=== PATIENT | female | born 1965 | race Caucasian/White ===

== ENCOUNTER 2020-05-28 13:55 | Emergency (ER) | payer OTHER, SELFPAY ==
[2020-05-28 13:57] VITALS: BP 122/60; PULSE 68; RESP 16; TEMP 36.6; O2SAT 99; BMI 33.3
--- NOTE | 2020-05-28 16:07 | PC.NURSE ---
Pt LWT. Encouraged to stay, declined. Ambulated out of ed w/ steady and erwin gait, no apparent distress. discussed and verbalized risk of leaving.
== END 2020-05-28 16:10 | disposition left against medical advice (07) ==
PROVIDERS: Emergency Provider Emergency Medicine; PCP Internal Medicine
DX: R42 Dizziness and giddiness (principal)
CPT/HCPCS: 99282

== ENCOUNTER 2021-03-06 14:05 | Outpatient (REF) | payer OTHER, SELFPAY ==
[2021-03-06 15:07] LABS: Influenza A PCR NEGATIVE (Negative); Influenza B PCR NEGATIVE (Negative); Resp Syncy Virus RNA Qual PCR NEGATIVE (Negative); SARS COV2 PCR INHOUSE NEGATIVE (Negative)
== END 2021-03-06 14:06 | disposition home or self-care (01) ==
LOC: HO.LNP 14:05
PROVIDERS: Visit Provider Physician Assistant
DX: Z20.822 Contact with and (suspected) exposure to COVID-19 (principal); J06.9 Acute upper respiratory infection, unspecified
CPT/HCPCS: 0241U

== ENCOUNTER 2021-03-13 11:38 | Outpatient (REF) | payer OTHER, SELFPAY ==
[2021-03-13 12:36] LABS: Influenza A PCR NEGATIVE (Negative); Influenza B PCR NEGATIVE (Negative); Resp Syncy Virus RNA Qual PCR NEGATIVE (Negative); SARS COV2 PCR INHOUSE NEGATIVE (Negative)
== END 2021-03-13 11:39 | disposition home or self-care (01) ==
LOC: HO.LNP 11:38
PROVIDERS: Visit Provider Physician Assistant Medical
DX: Z20.822 Contact with and (suspected) exposure to COVID-19 (principal); J06.9 Acute upper respiratory infection, unspecified
CPT/HCPCS: 0241U

== ENCOUNTER 2023-04-27 13:53 | Outpatient (AMB) | payer OTHER, SELFPAY ==
[2023-04-27 13:54] VITALS: BP 110/72; PULSE 72; O2SAT 96; BMI 33.9
--- NOTE | 2023-04-27 13:54 | MHC.PC.OV ---
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 Accompanied by: Self / Same As Patient Allergies morphine Allergy (Intermediate, Verified 04/27/23 14:30) chest heaviness Medication List - Last Reconciled 04/27/23 by Kobe Byrd MD albuterol sulfate 90 mcg/actuation 2 puffs PO QID PRN 30 days fluticasone propionate 110 mcg/actuation (Flovent HFA) 2 puffs PO BID 30 days lorazepam 0.5 mg PO .QD-BID PRN 30 days omeprazole 40 mg (2 x 20 mg) PO DAILY Tobacco use date assessed: 04/27/23 Dental Screening Dental Screen Date: 04/27/23 Did you have a dental visit in the last 12 months?: Yes Did you have a dental problem in the last 6 months where you did not have access to dental care?: No Was dental information given to patient?: Patient has dentist HPI Med review HPI Details Patient comes in today for her follow up visit - has not been back in over 4 years (last seen by me on 04/26/2019) States that she feels okay She denies any headaches or dizziness Denies any chest pains, no SOB - states that her asthma has been well-controlled and she only uses her Flovent on an as-needed basis No nausea/vomiting, no abdominal pain No change in bowel habits noted She still goes to her Suboxone Clinic in [place], [place] regularly and is presently on 2/3 film of 8-2 mg daily PFSH Medical History (Updated 04/27/23 @ 14:50 by Kobe Byrd MD) History of substance abuse Obesity (BMI 30-39.9) Asthma ELENA (generalized anxiety disorder) GERD (gastroesophageal reflux disease) Surgical History (Updated 04/27/23 @ 14:55 by Kobe Byrd MD) History of colonoscopy (~2012) History of hemangioma excision History of arthroplasty of left knee History of arthroplasty of right knee History of endometrial ablation History of carpal tunnel release History of arthroscopy of right knee History of section Family History Father No problems noted. Mother No problems noted. Paternal Uncle Myocardial infarction Social History Housing: Apartment Alcohol intake: never Patient Tobacco Use Status: Former Tobacco user Tobacco use type: Cigarette e-Cigarette/Vaping Use: Never Used Second Hand Smoke Exposure: No service: No Current occupational status: unemployed Current occupational exposures/hazards: No Cognitive needs: No Hearing needs: No Vision needs: No Questionnaire PHQ-9 Over the last 2 weeks, how often have you been bothered by any of the following problems? 1. Little interest or pleasure in doing things: not at all 2. Feeling down, depressed, or hopeless: not at all 3. Trouble falling or staying asleep, or sleeping too much: not at all 4. Feeling tired or having little energy: not at all 5. Poor appetite or overeating: not at all 6. Feeling bad about yourself - or that you are a failure or have let yourself or your family down: not at all 7. Trouble concentrating on things, such as reading the newspaper or watching television: not at all 8. Moving or speaking so slowly that other people could have noticed. Or the opposite - being so fidgety or restless that you have been moving around a lot more than usual: not at all 9. Thoughts that you would be better off or of hurting yourself in some way: not at all Total score: 0 Depression Screening Interpretation: Negative Depression Screening Done: Yes 92375 - PHQ-9 Billing: Yes Source: Developed by Drs. Manas Burdick, Ariela Enriquez, Hakan Tong and colleagues, with an educational angi from [employer]. Thrive Questionnaire Date Thrive assessed: 04/27/23 I am a: Patient What is your living situation today?: I have a steady place to live Within the past 12 months, did the food you bought not last and you didn't have the money to get more?: Never true Within the past 12 months, did you worry whether your food would run out before you got money to buy more?: Never true Do you have trouble paying for medicines?: No Do you have trouble getting transportation to medical appointments?: No Do you have trouble paying your heating and electricity bill?: No Do you have trouble taking care of your child, family member or friend?: No Do you have trouble with day-to-day activities such as bathing, preparing meals, shopping, managing finances, etc.?: No Are you currently unemployed and looking for a job?: No Are you interested in more education?: No Please select the resources that you would like help with: None Currently or been in a relationship where the following occur: no concerns reported THRIVE Score: 0 AUDIT C Alcohol Use Questionnaire (AUDIT-C) 1. How often do you have a drink containing alcohol?: Never Total Score: 0 Score Reviewed/Action Taken: Yes ELENA-7 AMB Questionnaire ELENA-7 Date ELENA - 7 assessed: 04/27/23 Feeling nervous, anxious, or on edge: 1 = Several days Not being able to stop or control worryin = Not at all Worrying too much about different things: 0 = Not at all Trouble relaxin = Not at all Being so restless that it is hard to sit still: 0 = Not at all Becoming easily annoyed or irritable: 0 = Not at all Feeling afraid as if something awful might happen: 0 = Not at all Total ELENA-7 score (0-4 normal; 5-9 mild; 10-14 moderate; 15-21 severe): 1 Source: Developed by Drs. Manas Burdick, Ariela Enriquez, Hakan Tong and colleagues, with an educational angi from [employer]. ELENA-7 Assessment Billing ELENA-7 Assessment Tool: ELENA-7 Assessment 43347 Review of Systems Const Denies chills, Denies fatigue, Denies fever(s) and Denies headache(s) ENT Denies dysphagia, Denies dizziness, Denies otalgia, Denies headache(s), Denies neck pain, Denies odynophagia and Denies sore throat Card Denies chest pain, Denies palpitations and Denies dyspnea Resp Denies cough and Denies dyspnea GI Denies abdominal pain, Denies constipation, Denies dysphagia, Denies heartburn, Denies diarrhea, Denies nausea, Denies odynophagia and Denies vomiting Denies difficulty voiding, Denies nocturia, Denies dysuria and Denies urinary urgency Musc Denies back pain and Denies neck pain Skin/Breast Denies rash Neuro Denies dizziness and Denies headache(s) Endo Denies fatigue and Denies palpitations Physical exam (Primary Care) Vital Signs: Last Vital Signs Pulse 72 04/27/23 13:54 BP 110/72 04/27/23 13:54 Pulse Ox 96 04/27/23 13:54 Oxygen Delivery Method Room Air 04/27/23 13:54 BMI result Body Mass Index 33.9 Tobacco/Smoking Status: Tobacco use Status Tobacco use date assessed 04/27/23 04/27/23 13:55 Patient Tobacco Use Status Former Tobacco user 04/27/23 13:55 Tobacco use type Cigarette 04/27/23 13:55 e-Cigarette/Vaping Use Never Used 04/27/23 13:55 PHQ-9: PHQ-9 Score PHQ-9: Total score 0 04/27/23 14:00 Depression Screening Interpretation: Negative Thrive Assessment: Date of Thrive Assessment Date Thrive assessed 04/27/23 04/27/23 13:55 Currently or been in a relationship where the following occur: no concerns reported Const General: no acute distress and alert Neck Neck: Yes no lymphadenopathy and Yes supple Resp Auscultation: clear to auscultation bilaterally, no rales and no wheezes Cardio Rate: regular rate Rhythm: regular rhythm Heart sounds: no murmurs GI Palpation (GI): Soft to palpation, nontender and No hepatosplenomegaly present Extrem General: Yes no clubbing, cyanosis or edema Assessment and Plan Assessment & Plan (1) Asthma: Code(s): J45.909 - Unspecified asthma, uncomplicated Qualifiers: Asthma severity: mild Asthma persistence: intermittent Asthma complication type: uncomplicated Qualified Code(s): J45.20 - Mild intermittent asthma, uncomplicated Plan: Controlled Patient used to be on Flovent HFA 110 mcg 2 inhalations BID but states that she has only been using it on an as-needed basis for the past couple of years and she hardly has had to use it She also has Albuterol HFA to use at 1 to 2 inhalations Q 6 hours PRN (2) GERD (gastroesophageal reflux disease): Code(s): K21.9 - Gastro-esophageal reflux disease without esophagitis Qualifiers: Esophagitis presence: esophagitis presence not specified Qualified Code(s): K21.9 - Gastro-esophageal reflux disease without esophagitis Plan: Dietary restrictions reinforced Continue Omeprazole 20 mg QD (3) History of substance abuse: Code(s): F19.11 - Other psychoactive substance abuse, in remission Plan: Continue Suboxone 8-2 mg 2/3 film QD - patient goes to her Suboxone clinic in [place], [place] (4) ELENA (generalized anxiety disorder): Code(s): F41.1 - Generalized anxiety disorder Plan: Continue Lorazepam 0.5 mg 1 to 2 times a day as needed (5) Obesity (BMI 30-39.9): Code(s): E66.9 - Obesity, unspecified Plan: Reinforced diet/exercise as tolerated/lose weight Plan To return in 6 months for her annual physical examination Patient is reminded to get her labs done BEFORE she comes in for her next appointment Orders: Orders TSH reflex Free T4 6 Months E78.00 - Pure hypercholesterolemia, unspecified, Z00.00 - Encounter for general adult medical examination without abnormal findings Complete Blood Count Auto Diff 6 Months D64.9 - Anemia, unspecified, Z00.00 - Encounter for general adult medical examination without abnormal findings Comprehensive [place]. Panel Fast 6 Months E78.00 - Pure hypercholesterolemia, unspecified, Z00.00 - Encounter for general adult medical examination without abnormal findings Lipid Panel 6 Months E78.00 - Pure hypercholesterolemia, unspecified, Z00.00 - Encounter for general adult medical examination without abnormal findings Medications: New buprenorphine-naloxone 8-2 mg (Suboxone) 2/3 film buccally daily; 30 ea 0RF Coding Level of Care Code Est Pt Level 3 (62874) Diagnoses Mild intermittent asthma without complication J45.20 Asthma severity: mild Asthma persistence: intermittent Asthma complication type: uncomplicated Gastroesophageal reflux disease, unspecified whether esophagitis present K21.9 Esophagitis presence: esophagitis presence not specified History of substance abuse F19.11 ELENA (generalized anxiety disorder) F41.1 Obesity (BMI 30-39.9) E66.9 Additional Codes ELENA-7 Assessment Billing - ELENA-7 Assessment Tool: ELENA-7 Assessment [id number] ([id number])
== END 2023-04-27 14:48 | disposition home or self-care (01) ==
PROVIDERS: PCP Internal Medicine; Visit Provider Internal Medicine
DX: J45.20 Mild intermittent asthma, uncomplicated (principal); F19.11 Other psychoactive substance abuse, in remission; E66.9 Obesity, unspecified; Z68.33 Body mass index [BMI] 33.0-33.9, adult; K21.9 Gastro-esophageal reflux disease without esophagitis; F41.1 Generalized anxiety disorder
CPT/HCPCS: 99213

== ENCOUNTER 2023-07-26 16:11 | Outpatient (AMB) | payer OTHER, SELFPAY ==
--- NOTE | 2023-07-26 16:26 | MHC.PC.OV ---
Vital Signs 07/26/23 16:28 Height 5 ft 3 in Weight 189 lb 8 oz BMI 33.6 BP 120/62 Blood Pressure Location Lt brachial Position Sitting Pulse 68 Pulse Source Pulse Oximeter Pulse Oximetry (%) 97 Oxygen Delivery Method Room Air Intake Visit Reasons: sharp chest pain single occurrence. Intake Note: Patient is here to follow up on sharp chest pain single occurrence. Complaint of sore throat for the last one week, requesting for strep culture. 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: Not Required per policy Accompanied by: Self / Same As Patient Allergies morphine Allergy (Intermediate, Verified 07/26/23 16:51) chest heaviness Medication List - Last Reconciled 07/26/23 by Kobe Byrd MD albuterol sulfate 90 mcg/actuation 2 puffs PO QID PRN 30 days buprenorphine-naloxone 8-2 mg (Suboxone) 2/3 film buccally daily; lorazepam 0.5 mg PO .QD-BID PRN 30 days omeprazole 40 mg (2 x 20 mg) PO DAILY Pulmicort Flexhaler 90 mcg/actuation (budesonide) 2 inhalations inhalation BID NS Tobacco use date assessed: 07/26/23 Dental Screening Dental Screen Date: 04/27/23 HPI sharp chest pain single occurrence. HPI Details Patient comes in today for further evaluation of chest pain/pressure as well as a recurrent sensation of palpitations that she has been experiencing lately Recalls that she suddenly experienced a sensation of sharp chest pain/pressure about 3 Fridays ago while she was out dancing with some friends States that she then went and sat down and rested herself, and her chest symptoms cleared up / resolved in a few minutes States that the same symptoms occurred again a few days later and that she has been taking it easy and avoiding any strenuous activities since then Adds that she has noticed some on and off sensations of what feels like palpitations/ skipping heart beats lately Notes that these would come and go irregardless of what she is doing and has also occurred at night when she is in bed but has not occurred in the past couple of days Notes that these sensations of palpitations tend to be brief and are not associated with any chest pains or SOB, dizziness/lightheadedness or fatigue States that she's also had a sore throat for about 1 week now and it seems to be starting to subside but is concerned that she could have had a strep throat and would like to get this tested She denies any fever Denies any headaches, dizziness or SOB No nausea/vomiting, no abdominal pain No change in bowel habits noted [facility] Medical History History of substance abuse Obesity (BMI 30-39.9) Asthma ELENA (generalized anxiety disorder) GERD (gastroesophageal reflux disease) Surgical History History of colonoscopy (~2012) History of hemangioma excision History of arthroplasty of left knee History of arthroplasty of right knee History of endometrial ablation History of carpal tunnel release History of arthroscopy of right knee History of section Family History Father No problems noted. Mother No problems noted. Paternal Uncle Myocardial infarction Other Mental health disorder Social History Housing: Apartment Alcohol intake: never Patient Tobacco Use Status: Former Tobacco user Tobacco use type: Cigarette e-Cigarette/Vaping Use: Never Used Second Hand Smoke Exposure: No service: No Current occupational status: unemployed Current occupational exposures/hazards: No Cognitive needs: No Hearing needs: No Vision needs: No Questionnaire Thrive Questionnaire Date Thrive assessed: 04/27/23 ELENA-7 AMB Questionnaire ELENA-7 Date ELENA - 7 assessed: 04/27/23 Source: Developed by Drs. Manas Burdick, Ariela Enriquez, Hakan Tong and colleagues, with an educational angi from [employer]. Review of Systems Const Denies chills, Denies fatigue, Denies fever(s) and Denies headache(s) ENT Denies dysphagia, Denies dizziness, Denies otalgia, Denies headache(s), Denies neck pain, Denies odynophagia and Reports sore throat (see HPI) Card Reports as per HPI, Reports chest pain, Reports irregular heart rhythm (on and off sensations of palpitations ), Denies palpitations and Denies dyspnea Resp Denies cough and Denies dyspnea GI Denies abdominal pain, Denies constipation, Denies dysphagia, Denies heartburn, Denies diarrhea, Denies nausea, Denies odynophagia and Denies vomiting Denies difficulty voiding, Denies nocturia, Denies dysuria and Denies urinary urgency Musc Denies back pain and Denies neck pain Skin/Breast Denies rash Neuro Denies dizziness and Denies headache(s) Endo Denies fatigue and Denies palpitations Physical exam (Primary Care) Vital Signs: Last Vital Signs Pulse 68 07/26/23 16:28 BP 120/62 07/26/23 16:28 Pulse Ox 97 07/26/23 16:28 Oxygen Delivery Method Room Air 07/26/23 16:28 BMI result Body Mass Index 33.6 Tobacco/Smoking Status: Tobacco use Status Tobacco use date assessed 07/26/23 07/26/23 16:33 Patient Tobacco Use Status Former Tobacco user 07/26/23 16:33 Tobacco use type Cigarette 07/26/23 16:33 e-Cigarette/Vaping Use Never Used 07/26/23 16:33 Thrive Assessment: Date of Thrive Assessment Date Thrive assessed 04/27/23 07/26/23 16:33 Const General: no acute distress and alert HENMT Throat: Yes tonsils normal (no TP congestion noted) and Yes posterior oropharynx abnormal ((+) mild erythema of the posterior pharynx) Neck Neck: Yes no lymphadenopathy and Yes supple Thyroid: Thyroid normal Resp Auscultation: clear to auscultation bilaterally, no rales and no wheezes Cardio Rate: regular rate Rhythm: regular rhythm Heart sounds: no murmurs GI Palpation (GI): Soft to palpation and nontender Auscultation: normal bowel sounds General: Yes no CVA tenderness Back/Spine/Pelvis Back: no CVA tenderness Skin Rashes: no rashes Extrem General: Yes no clubbing, cyanosis or edema Results AMB Rapid Strep AMB Rapid Strep Negative Last Edit by STACI Fox on 07/26/23 16:41 Results Reviewed Results Reviewed: Laboratory Last Values Strep Scn Rapid Clinic Negative 07/26/23 16:37 Assessment and Plan Assessment & Plan (1) Palpitations: Code(s): R00.2 - Palpitations Plan: Will send patient for some labs [facility] for further evaluation Will also send her for echocardiogram and a 7 days Holter monitor for further evaluation of her recent symptoms of palpitations (2) Chest pressure: Code(s): R07.89 - Other chest pain Plan: Will send patient for some labs [facility] for further evaluation She is presently advised to continue avoiding any strenuous activities for now pending further work ups Advised that she should proceed to the nearest ER [facility] if her chest pressure/pain symptoms continue to recur and she should also start taking low dose Aspirin daily in this case (3) Asthma: Code(s): J45.909 - Unspecified asthma, uncomplicated Qualifiers: Asthma severity: mild Asthma persistence: intermittent Asthma complication type: uncomplicated Qualified Code(s): J45.20 - Mild intermittent asthma, uncomplicated Plan: Controlled Patient used to be on Flovent HFA 110 mcg 2 inhalations BID but states that she has only been using it on an as-needed basis for the past couple of years and she hardly has had to use it She also has Albuterol HFA to use at 1 to 2 inhalations Q 6 hours PRN (4) GERD (gastroesophageal reflux disease): Code(s): K21.9 - Gastro-esophageal reflux disease without esophagitis Qualifiers: Esophagitis presence: esophagitis presence not specified Qualified Code(s): K21.9 - Gastro-esophageal reflux disease without esophagitis Plan: Dietary restrictions reinforced Continue Omeprazole 20 mg QD (5) History of substance abuse: Code(s): F19.11 - Other psychoactive substance abuse, in remission Plan: Continue Suboxone 8-2 mg 2/3 film QD - patient goes to her Suboxone clinic in [place], [place] (6) ELENA (generalized anxiety disorder): Code(s): F41.1 - Generalized anxiety disorder Plan: Continue Lorazepam 0.5 mg 1 to 2 times a day as needed (7) Obesity (BMI 30-39.9): Code(s): E66.9 - Obesity, unspecified Plan: Reinforced diet and weight loss but has been advised to hold off on any strenuous activities/exercise until her cardiac evaluation is completed Plan To return as scheduled in October 2023 for her annual physical examination Orders: Orders Comprehensive [place]. Panel Fast 07/26/23 E78.00 - Pure hypercholesterolemia, unspecified, R00.2 - Palpitations C Reactive Protein 07/26/23 R00.2 - Palpitations CA echo transthoracic complete 07/26/23 R00.2 - Palpitations, R06.09 - Other forms of dyspnea AMB Rapid Strep Screen 07/26/23 Z13.9 - Encounter for screening, unspecified Complete Blood Count Auto Diff 07/26/23 D64.9 - Anemia, unspecified, R00.2 - Palpitations Lipid Panel 07/26/23 E78.00 - Pure hypercholesterolemia, unspecified, R00.2 - Palpitations TSH reflex Free T4 07/26/23 E78.00 - Pure hypercholesterolemia, unspecified, R00.2 - Palpitations Troponin-I High Sensitivity 07/26/23 R00.2 - Palpitations, R07.9 - Chest pain, unspecified ECG 7 day holter monitor 07/26/23 R00.2 - Palpitations Coding Level of Care Code Est Pt Level 4 (00898) Diagnoses Palpitations R00.2 Chest pressure R07.89 Mild intermittent asthma without complication J45.20 Asthma severity: mild Asthma persistence: intermittent Asthma complication type: uncomplicated Gastroesophageal reflux disease, unspecified whether esophagitis present K21.9 Esophagitis presence: esophagitis presence not specified History of substance abuse F19.11 ELENA (generalized anxiety disorder) F41.1 Obesity (BMI 30-39.9) E66.9
[2023-07-26 16:28] VITALS: BP 120/62; PULSE 68; O2SAT 97; BMI 33.6
== END 2023-07-26 17:01 | disposition home or self-care (01) ==
PROVIDERS: PCP Internal Medicine; Visit Provider Internal Medicine
DX: R07.0 Pain in throat (principal)
CPT/HCPCS: 87880; 99214

== ENCOUNTER 2023-07-27 06:04 | Outpatient (REF) | payer OTHER, SELFPAY ==
[2023-07-27 06:20] LABS: MANUAL DIFF FLAG NO
[2023-07-27 07:14] LABS: Troponin-I High Sensitivity < 2.7 ng/L (<3.5-17.0)
[2023-07-27 07:20] LABS: Alanine Aminotransferase 12 U/L (0-31); Alkaline Phosphatase 91 U/L (39-117); Anion Gap 13 (12-20); Aspartate Amino Transferase 20 U/L (5-31); Bilirubin Total 0.4 mg/dL (0.0-1.0); Blood Urea Nitrogen 12 mg/dL (9-16); C Reactive Protein 0.81 mg/dL (< or = 0.50); Calcium 9.4 mg/dL (8.4-10.2); Carbon Dioxide 26 mmol/L (22-29); Chloride 106 mmol/L (96-108); Cholesterol 200 mg/dL (<200); Estimated Glomerular Filt Rate > 60; Glucose Fasting 91 mg/dL (60-99); HDL Cholesterol 60 mg/dL (>40); LDL Cholesterol Calculated 125 mg/dL (<100); Sodium 141 mmol/L (135-145); Total Protein 6.6 g/dL (6.5-8.0); Triglycerides 79 mg/dL (<150)
[2023-07-27 07:23] LABS: Basophils Percent Auto 0.7 % (0-2); Eosinophils Absolute Auto 0.2 X10*3/uL (0.0-0.4); Hematocrit 37.4 % (37.0-47.0); Hemoglobin 12.5 g/dl (12.0-16.0); Imm Gran Abs Auto 0.01 X10*3/uL (0.00-0.03); Imm Gran Pct Auto 0.2 % (0.0-0.4); Lymphocytes Absolute Auto 1.5 X10*3/uL (1.2-4.9); Lymphocytes Percent Auto 35.2 % (20-40); Mean Corpuscular HGB Conc 33.4 g/dl (31.0-35.0); Mean Corpuscular Hemoglobin 30.6 pg (27.0-33.0); Mean Corpuscular Volume 91.7 fL (80.0-98.0); Mean Platelet Volume 9.9 fL (9.4-12.3); Monocytes Absolute Auto 0.3 X10*3/uL (0.1-1.2); Monocytes Percent Auto 6.4 % (2-11); Neutrophils Absolute Auto 2.2 x10*3/uL (2.0-8.3); Neutrophils Percent Auto 52.5 % (45-73); Platelet Count 201 X10*3/uL (160-400); Red Blood Count 4.08 X10*6/uL (4.20-5.50); Red Cell Distribution Width 12.4 % (11.0-16.0); White Blood Count 4.2 X10*3/uL (4.8-10.8)
== END 2023-07-27 06:05 | disposition home or self-care (01) ==
LOC: HO.LAB 06:04
PROVIDERS: PCP Internal Medicine; Visit Provider Internal Medicine
DX: R07.9 Chest pain, unspecified (principal); R00.2 Palpitations; E78.00 Pure hypercholesterolemia, unspecified; D64.9 Anemia, unspecified
CPT/HCPCS: 36415; 80053; 80061; 84443; 84484; 85025; 86140

== ENCOUNTER → 2023-08-18 14:08 | Outpatient (REF) | payer OTHER, SELFPAY ==
--- NOTE | 2023-08-18 14:13 | CA_ITS ---
Transthoracic Echocardiogram Patient (Last, First, Middle): Jocelyne Garcia M Gender: Female Date of : 1965 Age: 58 Procedure Date: 08/18/2023 Procedure Type: Transthoracic Echocardiogram Location: OP Height: 160.02 cm Weight: 83.92 kg BSA: 1.87 m2 Heart Rate: bpm BP: 90 / 60 mmHg Punching Machine Operator: TO Referring MD: Kobe Byrd MD Symptoms: R06.09 - Other forms of dyspnea Study Quality: Adequate ECG Rhythm: Sinus Conclusions: - The left ventricular systolic function is normal. The calculated ejection fraction is 66% by biplane method. - No obvious valvular pathology seen on this study. Findings Left Ventricle Normal left ventricular cavity size. There is normal left ventricular wall thickness. The left ventricular systolic function is normal. The calculated ejection fraction is 66% by biplane method. There is no evidence of regional wall motion abnormalities. Diastolic function is normal for age. LV peak GLS -22.7% (normal). Right Ventricle Normal right ventricular cavity size and systolic function. Atria Both atria are normal in size. Aortic Valve There is a normal trileaflet aortic valve. There is no aortic valve stenosis. There is no aortic valve regurgitation. Mitral Valve There is mild mitral annular calcification. There is trace mitral valve regurgitation. There is no mitral valve stenosis. Pulmonic Valve The pulmonic valve is likely normal. Tricuspid Valve There is mild tricuspid valve regurgitation. There is no evidence of pulmonary hypertension. Great Vessels The asc aorta and aortic arch are normal in size. Venous The inferior vena cava is normal in size and collapses greater than 50% with inspiration. Pericardium/Pleural There is a trivial pericardial effusion. Prior Study Comparison No significant change compared to prior study dated: 10/26/2017. Recommendations, Care & Conclusions No obvious valvular pathology seen on this study. Measurements 2D Linear Measurements IVSd: 0.89 0.6-0.9/0.6-1.0 cm LVIDd: 4.74 3.9-5.3/4.2-5.9 cm LVIDd Index: 2.53 2.4-3.2/2.2-3.1 cm/m2 LVIDs: 3.04 2.0-3.6 cm LVPWd: 0.72 0.7-1.1 cm LA Diam: 3.60 2.7-3.8/3.0-4.0 cm LAIDs Index: 1.93 1.5-2.3 cm/m2 LV Mass: 155.79 67-162/88-224 g LV Mass Index: 83.31 43-95/49-115 g/m2 LVOT Diam: 2.00 3.0+(-)1.3 cm 2D Systolic Function EF 4C: 67.90 >55% EF 2C: 61.40 >55% EF BiP: 66.00 >55% Mitral Valve MV VTI: 0.36 MV Pk Dave: 1.18 MV Mn Dave: 0.57 MV Pk Grad: 6.00 MV Mn Grad: 2.00 MV Pk E: 0.98 MV PK A: 0.43 MV Decel Time: 229.00 E/A: 2.30 E'Lateral: 9.36 E'Medial: 8.49 E/E' Med: 11.50 E/E' Lat: 10.40 PHT: 67.00 MVA PHT: 3.28 MVA Continuity: 2.17 Decel [place]: 4.27 Aortic Valve AoV Pk Dave: 1.82 AoV Mn Dave: 1.33 AoV VTI: 0.44 AoV Pk Grad: 13.00 Aov Mn Grad: 8.00 NICKI Cont.VTI: 1.80 LVOT LVOT Pk Dave: 1.02 LVOT Mn Dave: 0.65 LVOT VTI: 0.25 LVOT Pk Grad: 4.00 LVOT Mn Grad: 2.00 LVOT Diam: 2.00 LVOT Area: 3.14 Diastolic Function MV Pk E: 0.98 MV Pk A: 0.43 E/A: 2.30 E'Medial: 8.49 E/E' Med: 11.50 E' Laterial: 9.36 E/E' Lat: 10.40 Right Ventricle TAPSE (mm): 29.20 TVS' Dave: 11.50 Tricuspid Valve TR Pk Dave: 2.01 TR Pk Grad: 16.00 RA Press: 3.00 RVSP: 19.00 Great Vessels Aorta Sinus of Valsalva: 2.71 2.0-3.5 cm Ao Asc: 3.00 2.1-3.4 cm Ao Arch: 2.30 Updated in Other Vendor System with Status of Final Onesimo Silveira MD electronically signed on 08/20/2023 9:08:12 AM with status of Final
--- NOTE | 2023-08-18 14:13 | HM_ITS ---
Conclusion : 1) Patient was monitored for total period of 5 days and 21 hours 2) Baseline rhythm is NSR with average HR of 71 bpm 3) No significant pauses or arrhythmias noted 4) Patient reported 2 events correlated with NSR MTDD
== END ==
LOC: HO.CARD 14:08
PROVIDERS: PCP Internal Medicine; Visit Provider Internal Medicine
DX: R00.2 Palpitations (principal); R06.09 Other forms of dyspnea
CPT/HCPCS: 93242; 93306; 93356

== ENCOUNTER → 2023-08-18 14:13 | Outpatient (BNV) | payer OTHER, SELFPAY | PROVIDERS: PCP Internal Medicine; Visit Provider Internal Medicine | DX: R00.2 Palpitations (principal) | CPT/HCPCS: 93244; 93306; 93356 ==

== ENCOUNTER 2023-10-26 08:59 | Outpatient (AMB) | payer BC, SELFPAY ==
[2023-10-26 09:00] VITALS: BP 116/70; PULSE 73; O2SAT 98; BMI 33.8
--- NOTE | 2023-10-26 09:00 | A.OFFPC_ITS ---
Vital Signs 10/26/23 09:00 Height 5 ft 3 in Weight 191 lb 0.2 oz BMI 33.8 BP 116/70 Blood Pressure Location Lt brachial Position Sitting Pulse 73 Pulse Source Pulse Oximeter Pulse Oximetry (%) 98 Oxygen Delivery Method Room Air Intake Visit Reasons: Annual Exam Intake Note: Patient is here today for a physical. 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 Required: No Allergies morphine Allergy (Intermediate, Verified 10/26/23 09:12) chest heaviness Medication List - Last Reconciled 10/26/23 by Kobe Byrd MD albuterol sulfate 90 mcg/actuation 2 puffs PO QID PRN 30 days buprenorphine-naloxone 8-2 mg (Suboxone) 2/3 film buccally daily; lorazepam 0.5 mg PO .QD-BID PRN 30 days omeprazole 40 mg (2 x 20 mg) PO DAILY Pulmicort Flexhaler 90 mcg/actuation (budesonide) 2 inhalations inhalation BID NS Tobacco use date assessed: 07/26/23 Dental Screening Dental Screen Date: 10/26/23 Did you have a dental visit in the last 12 months?: Yes Did you have a dental problem in the last 6 months where you did not have access to dental care?: No Was dental information given to patient?: Patient has dentist HPI Annual Exam HPI Details Patient comes in today for her annual physical examination States that she feels okay She denies any headaches or dizziness Denies any chest pains, no SOB No nausea/vomiting, no abdominal pain No change in bowel habits noted Denies any acute urinary symptoms Needs her Lorazepam Rx refilled She did not get her follow up labs done recently although she did have some labs done back in July 2023 She last had her screening colonoscopy done at [facility] in 2012 and was due for repeat colonoscopy in 2022 She has NOT had her gynecology exam and pap smear done in years - was last done with Dr. Rosenberg at [facility] She also has not had her annual mammogram done in over 5 years and has never had BMD screening done in the past [facility] Medical History History of substance abuse Obesity (BMI 30-39.9) Asthma ELENA (generalized anxiety disorder) GERD (gastroesophageal reflux disease) Surgical History History of colonoscopy (~2012) History of hemangioma excision History of arthroplasty of left knee History of arthroplasty of right knee History of endometrial ablation History of carpal tunnel release History of arthroscopy of right knee History of section Family History Father No problems noted. Mother No problems noted. Paternal Uncle Myocardial infarction Other Mental health disorder Social History Housing: Apartment Alcohol intake: never Patient Tobacco Use Status: Former Tobacco user Tobacco use type: Cigarette e-Cigarette/Vaping Use: Never Used Second Hand Smoke Exposure: No service: No Current occupational status: unemployed Current occupational exposures/hazards: No Cognitive needs: No Hearing needs: No Vision needs: No Questionnaire PHQ-9 Over the last 2 weeks, how often have you been bothered by any of the following problems? 1. Little interest or pleasure in doing things: not at all 2. Feeling down, depressed, or hopeless: not at all 3. Trouble falling or staying asleep, or sleeping too much: not at all 4. Feeling tired or having little energy: not at all 5. Poor appetite or overeating: not at all 6. Feeling bad about yourself - or that you are a failure or have let yourself or your family down: not at all 7. Trouble concentrating on things, such as reading the newspaper or watching television: not at all 8. Moving or speaking so slowly that other people could have noticed. Or the opposite - being so fidgety or restless that you have been moving around a lot more than usual: not at all 9. Thoughts that you would be better off or of hurting yourself in some way: not at all Total score: 0 Depression Screening Interpretation: Negative Depression Screening Done: Yes 72549 - PHQ-9 Billing: Yes Source: Developed by Drs. Manas Burdick, Ariela Enriquez, Hakan Tong and colleagues, with an educational angi from [employer]. Thrive Questionnaire Date Thrive assessed: 04/27/23 I am a: Patient What is your living situation today?: I have a steady place to live Within the past 12 months, did the food you bought not last and you didn't have the money to get more?: Never true Within the past 12 months, did you worry whether your food would run out before you got money to buy more?: Never true Do you have trouble paying for medicines?: No Do you have trouble getting transportation to medical appointments?: No Do you have trouble paying your heating and electricity bill?: No Do you have trouble taking care of your child, family member or friend?: No Do you have trouble with day-to-day activities such as bathing, preparing meals, shopping, managing finances, etc.?: No Are you currently unemployed and looking for a job?: No Are you interested in more education?: No Please select the resources that you would like help with: None Currently or been in a relationship where the following occur: No concerns reported THRIVE Score: 0 AUDIT C Alcohol Use Questionnaire (AUDIT-C) 1. How often do you have a drink containing alcohol?: Never 3. How often do you have six or more drinks on one occasion?: Never Total Score: 0 Score Reviewed/Action Taken: Yes ELENA-7 AMB Questionnaire ELENA-7 Date ELENA - 7 assessed: 04/27/23 Feeling nervous, anxious, or on edge: 0 = Not at all Not being able to stop or control worryin = Not at all Worrying too much about different things: 0 = Not at all Trouble relaxin = Not at all Being so restless that it is hard to sit still: 0 = Not at all Becoming easily annoyed or irritable: 0 = Not at all Feeling afraid as if something awful might happen: 0 = Not at all Total ELENA-7 score (0-4 normal; 5-9 mild; 10-14 moderate; 15-21 severe): 0 Source: Developed by Drs. Manas Burdick, Ariela Enriquez, Hakan Tong and colleagues, with an educational angi from [employer]. ELENA-7 Assessment Billing ELENA-7 Assessment Tool: ELENA-7 Assessment [id number] Review of Systems Const Denies chills, Denies fatigue, Denies fever(s), Denies headache(s) and Denies malaise Eyes Denies blurry vision, Denies change in vision, Denies irritation and Denies itchy eyes ENT Denies dysphagia, Denies dizziness, Denies otalgia, Denies headache(s), Denies nasal congestion, Denies neck pain, Denies odynophagia, Denies sinus pain and Denies sore throat Card Denies chest pain, Denies rapid heart rate, Denies irregular heart rhythm, Denies palpitations and Denies dyspnea Resp Denies chest congestion, Denies cough, Denies dyspnea and Denies wheezing GI Denies abdominal pain, Denies bloating, Denies constipation, Denies dysphagia, Denies heartburn, Denies diarrhea, Denies nausea, Denies odynophagia and Denies vomiting Denies hematuria, Denies urinary frequency, Denies dysuria, Denies urinary incontinence and Denies urinary urgency Musc Denies back pain, Denies arthralgias, Denies joint swelling, Denies muscle weakness and Denies neck pain Skin/Breast Denies breast pain, Denies breast mass, Denies change in pigmentation, Reports lesions ((+) hyperpigmented skin lesions on a couple of toes and under her breasts), Denies rash and Denies unusual bruising Neuro Denies dizziness, Denies headache(s) and Denies paresthesias Psych Denies anxiety and Denies depression Endo Denies fatigue and Denies palpitations Eber/Lymph Denies easy bruising Aller/Immun Denies itchy eyes and Denies wheezing Physical exam (Primary Care) Vital Signs: Last Vital Signs Pulse 73 10/26/23 09:00 BP 116/70 10/26/23 09:00 Pulse Ox 98 10/26/23 09:00 Oxygen Delivery Method Room Air 10/26/23 09:00 BMI result Body Mass Index 33.8 Tobacco/Smoking Status: Tobacco use Status Tobacco use date assessed 07/26/23 10/26/23 09:07 Patient Tobacco Use Status Former Tobacco user 10/26/23 09:07 Tobacco use type Cigarette 10/26/23 09:07 e-Cigarette/Vaping Use Never Used 10/26/23 09:07 PHQ-9: PHQ-9 Score PHQ-9: Total score 0 10/26/23 09:07 Depression Screening Interpretation: Negative Thrive Assessment: Date of Thrive Assessment Date Thrive assessed 04/27/23 10/26/23 09:07 Currently or been in a relationship where the following occur: No concerns reported Const General: no acute distress, alert and awake Orientation/consciousness: patient oriented x3 [facility] Head: Yes normocephalic and Yes atraumatic Ears: external ears normal, TM's normal bilaterally and EAC's normal General nose exam: No nasal discharge present Face and sinus: Yes normal facial exam and Yes sinuses nontender Teeth and gingiva: dentition normal Throat: Yes posterior oropharynx normal and Yes tonsils normal (no TP congestion) Eyes Eyelids: Yes eyelids normal Conjunctivae: conjunctivae normal Pupils: Equal, round and reactive pupils present EOM: EOMs intact bilaterally Neck Neck: Yes no lymphadenopathy and Yes supple Thyroid: Thyroid normal Resp Auscultation: clear to auscultation bilaterally, no rales and no wheezes Cardio Rate: regular rate Rhythm: regular rhythm Heart sounds: no murmurs GI Palpation (GI): Soft to palpation, nontender and No hepatosplenomegaly present Auscultation: normal bowel sounds General: Yes no CVA tenderness Back/Spine/Pelvis Back: no CVA tenderness Thoracic/Lumbar Spine: thoracic and lumbar spine normal to inspection Skin Other: (+) 3 hyperpigmented skin lesions - one in between the lower half of her breasts and the other 2 are on separate toes on both feet Rashes: no rashes Neuro General: patient oriented x3, moves all extremities, no focal motor deficits and CN's II-XI intact bilaterally Cranial nerves: Yes Equal, round and reactive pupils present Cognition (Neuro): normal cognition Gait exam (Neuro): Normal gait present Extrem Other: (+) mild onycholysis of some toenails on both feet General: Yes no clubbing, cyanosis or edema Results Reviewed Results Reviewed: Laboratory Tests 07/27/23 06:19 WBC 4.2 L Hgb 12.5 Hct 37.4 Plt Count 201 Sodium 141 Potassium 4.0 Creatinine 0.78 Estimated GFR > 60 Fasting Glucose 91 Calcium 9.4 AST 20 ALT 12 Troponin I High Sens < 2.7 C-Reactive Protein 0.81 H Triglycerides 79 Cholesterol 200 H LDL Cholesterol, Calc 125 H HDL Cholesterol 60 TSH 2.30 Assessment and Plan Assessment & Plan (1) Annual physical exam: Code(s): Z00.00 - Encounter for general adult medical examination without abnormal findings Plan: Results of her labs done back in July 2023 reviewed and discussed with patient She last had her screening colonoscopy done at [facility] in 2012 and was due for repeat colonoscopy in 2022 She has NOT had her gynecology exam and pap smear done in years - was last done with Dr. Rosenberg at [facility] She also has not had her annual mammogram done in over 5 years and has never had BMD screening done in the past Will have patient get her previously ordered labs (updated) done in 4 months for follow up (2) Palpitations: Code(s): R00.2 - Palpitations Plan: Patient states that she has not had any symptoms of palpitations lately and felt that they have mostly subsided Have advised patient that all of her work ups done a few months ago, including her labs, echocardiogram and Holter monitor, came back normal or unrevealing Her echocardiogram came out completely normal, with no valvular pathology Extended Holter monitor also came back normal - baseline rhythm is NSR with average HR of 71 bpm, no significant pauses or arrhythmias noted and patient reported 2 events that correlated with NSR Have advised patient that her symptoms were likely due to anxiety and as they have not been bothering her lately, we will just continue observing for now (3) Asthma: Code(s): J45.909 - Unspecified asthma, uncomplicated Qualifiers: Asthma severity: mild Asthma persistence: intermittent Asthma complication type: uncomplicated Qualified Code(s): J45.20 - Mild intermittent asthma, uncomplicated Plan: Controlled Patient used to be on Flovent HFA 110 mcg 2 inhalations BID but states that she has only been using it on an as-needed basis for the past couple of years and she hardly has had to use it We switched her recently over to Pulmicort due to insurance no longer covering Flovent - states that she has also been using her Pulmicort as needed lately She also has Albuterol HFA to use at 1 to 2 inhalations Q 6 hours PRN (4) GERD (gastroesophageal reflux disease): Code(s): K21.9 - Gastro-esophageal reflux disease without esophagitis Qualifiers: Esophagitis presence: esophagitis presence not specified Qualified Code(s): K21.9 - Gastro-esophageal reflux disease without esophagitis Plan: Dietary restrictions reinforced Continue Omeprazole 20 mg QD (5) History of substance abuse: Code(s): F19.11 - Other psychoactive substance abuse, in remission Plan: Continue Suboxone 8-2 mg 2/3 film QD - patient goes to her Suboxone clinic in [place], [place] (6) ELENA (generalized anxiety disorder): Code(s): F41.1 - Generalized anxiety disorder Plan: Continue Lorazepam 0.5 mg 1 to 2 times a day as needed - Rx refilled (7) Obesity (BMI 30-39.9): Code(s): E66.9 - Obesity, unspecified Plan: Reinforced diet/exercise as tolerated/lose weight Plan Follow up in 4 months Orders: Orders UA CC w/rflx Micro + Cult 02/20/24 R30.0 - Dysuria, Z00.00 - Encounter for general adult medical examination without abnormal findings MM tomosynthesis screening BI Today Z12.31 - Encounter for screening mammogram for malignant neoplasm of breast XR DEXA axial skeleton Today Z78.0 - Asymptomatic menopausal state Vitamin D 25-OH Total 02/20/24 E55.9 - Vitamin D deficiency, unspecified, Z00.00 - Encounter for general adult medical examination without abnormal findings Referrals Gastroenterology Referral Z12.11 - Encounter for screening for malignant neoplasm of colon [employer] Referral Z12.4 - Encounter for screening for malignant neoplasm of cervix Dermatology Referral L81.9 - Disorder of pigmentation, unspecified Medications: Refilled lorazepam 0.5 mg PO .QD-BID 30 days PRN 60 tabs 0RF anxiety Coding Level of Care Code Est Pt Prev Care 40-64y(23885) Diagnoses Annual physical exam Z00.00 Palpitations R00.2 Mild intermittent asthma without complication J45.20 Asthma severity: mild Asthma persistence: intermittent Asthma complication type: uncomplicated Gastroesophageal reflux disease, unspecified whether esophagitis present K21.9 Esophagitis presence: esophagitis presence not specified History of substance abuse F19.11 ELENA (generalized anxiety disorder) F41.1 Obesity (BMI 30-39.9) E66.9 Additional Codes ELENA-7 Assessment Billing - ELENA-7 Assessment Tool: ELENA-7 Assessment [id number] ([id number])
== END 2023-10-26 09:38 | disposition home or self-care (01) ==
PROVIDERS: PCP Internal Medicine; Visit Provider Internal Medicine
DX: Z00.00 Encounter for general adult medical examination without abnormal findings (principal); R00.2 Palpitations; J45.20 Mild intermittent asthma, uncomplicated; F19.11 Other psychoactive substance abuse, in remission; K21.9 Gastro-esophageal reflux disease without esophagitis; F41.1 Generalized anxiety disorder
CPT/HCPCS: 99396

== ENCOUNTER 2023-11-16 09:37 | Outpatient (REF) | payer BC, SELFPAY ==
--- NOTE | ~2023-11-16 | MM_ITS ---
EXAMINATION: BONE DENSITOMETRY CLINICAL INDICATION: Menopause. COMPARISON: This is the patient's baseline examination. TECHNIQUE: Using a HeartFlow DXA System (software version: 13.1) manufactured by [employer], dual-energy x-ray absorptiometry was performed of the lumbar spine and left hip. The images are of good technical quality. Summary results are attached. FINDINGS: LEFT FEMUR, NECK: BMD 0.897 g/cm2, Z-score -0.2, T-score -1.0, normal. LEFT FEMUR, TOTAL: BMD 0.881 g/cm2, Z-score -0.6, T-score -1.0, normal. AP SPINE L1-L4: BMD 1.136 g/cm2, Z-score 0.2, T-score -0.4, normal. IDENTIFIED RISK FACTORS: Early menopause, secondary osteoporosis. HISTORY OF FRACTURE: None listed. MEDICATIONS: None listed. MM/XR DEXA axial skeleton IMPRESSION: 1. DIAGNOSIS: Normal bone density based on the lowest T-score value of -1.0 in the femur neck and total femur applying World Health Organization criteria. 2. 10-YEAR FRACTURE RISK PREDICTION, FRAX: According to the guidelines, FRAX calculation should only be performed on patients in the osteopenia bone density category. Therefore, FRAX was not performed on this patient. 3. Treatment Recommendations: NOF guidelines recommend consideration for treatment in postmenopausal women and men age 50 and older presenting with the following: -A hip or vertebral (clinical or morphometric) fracture. -T-score less than or equal to -2.5 at the femoral neck or spine after appropriate evaluation to exclude secondary causes. -Low bone mass at the hip or spine and a 10-year fracture probability by FRAX of greater than or equal to 3% for hip fracture or greater than or equal to 20% for major osteoporotic fracture based on the [place] adapted WHO algorithm. 4. Other Recommendations: All treatment decisions require clinical judgment and consideration of individual patient factors, including patient preferences, comorbidities, previous drug use, risk factors not captured in the FRAX model (e.g. frailty, falls, vitamin D deficiency, increased bone turnover, interval significant decline in bone density) and possible under or overestimation of fracture risk by FRAX. FUTURE SCAN RECOMMENDATION: People with diagnosed cases of osteoporosis or at high risk for fracture should have regular bone mineral density tests. For patients eligible for Medicare, routine testing is allowed once every 2 years. The testing frequency can be increased to one year for patients who have rapidly progressing disease, those who are receiving or discontinuing medical therapy to restore bone mass, or have additional risk factors. Electronically signed by: Armand Mccoy MD 11/18/2023 09:56 AM EDT
--- NOTE | ~2023-11-16 | MM_ITS ---
EXAMINATION: MM SCREENING DIGITAL BREAST TOMOSYNTHESIS, BILATERAL CLINICAL INFORMATION: Screening. Asymptomatic. COMPARISON: Mammography: Comparison is made with available priors TECHNIQUE: Digital breast tomosynthesis is performed in both the craniocaudal and mediolateral oblique views along with computer-aided detection (CAD). Synthesized 2D images are generated from the tomosynthesis. FINDINGS: There are scattered areas of fibroglandular density (ACR BI-RADS breast composition Category b). There are no significant masses, abnormal calcifications, or other abnormalities. MM/MM tomosynthesis screening BI IMPRESSION: No mammographic evidence of malignancy. ASSESSMENT: BI-RADS BI-RADS 1 - Negative RECOMMENDATION: Routine annual mammography screening. 1 year F/U This examination should not preclude the clinical evaluation of a suspicious palpable abnormality. This patient's information was entered into a reminder system with a target due date for their next mammogram. Electronically signed by: Lorrie Thorpe DO 12/10/2023 01:14 PM EDT
== END 2023-11-16 09:38 | disposition home or self-care (01) ==
LOC: HO.MAMMO 09:37
PROVIDERS: PCP Internal Medicine; Visit Provider Internal Medicine
DX: Z12.31 Encounter for screening mammogram for malignant neoplasm of breast (principal); Z13.820 Encounter for screening for osteoporosis; Z78.0 Asymptomatic menopausal state
CPT/HCPCS: 77063; 77067; 77080

== ENCOUNTER → 2023-11-16 09:45 | Outpatient (BNV) | payer BC, SELFPAY | PROVIDERS: PCP Internal Medicine; Visit Provider Internal Medicine | DX: Z12.31 Encounter for screening mammogram for malignant neoplasm of breast (principal) | CPT/HCPCS: 77063; 77067 ==

== ENCOUNTER 2024-05-05 11:14 | Outpatient (REF) | payer BC, SELFPAY ==
[2024-05-05 13:11] LABS: Influenza A PCR POSITIVE (Negative); Influenza B PCR NEGATIVE (Negative); Resp Syncy Virus RNA Qual PCR NEGATIVE (Negative); SARS COV2 PCR INHOUSE NEGATIVE (Negative)
== END 2024-05-05 11:15 | disposition home or self-care (01) ==
LOC: HO.LAB 11:14
PROVIDERS: PCP Internal Medicine; Visit Provider Internal Medicine
DX: J98.8 Other specified respiratory disorders (principal); R05.8 Other specified cough
CPT/HCPCS: 0241U; 96127

== ENCOUNTER 2024-05-05 11:14 | Outpatient (AMB) | payer BC, SELFPAY ==
--- NOTE | 2024-05-05 11:15 | A.OFFPC_ITS ---
Intake Visit Reasons: 4 month f/u [employer] Card Changer Required: No Accompanied by: Self / Same As Patient Allergies morphine Allergy (Intermediate, Verified 05/07/24 15:37) chest heaviness Medication List - Last Reconciled 05/05/24 by Kobe Byrd MD albuterol sulfate 90 mcg/actuation 2 puffs PO QID PRN 30 days buprenorphine-naloxone 8-2 mg (Suboxone) 2/3 film alternating with 1/2 film buccally every other day; fluticasone propionate 110 mcg/actuation 2 inhalations inhalation BID lorazepam 0.5 mg PO .QD-BID PRN 30 days omeprazole 40 mg (2 x 20 mg) PO DAILY Tobacco use date assessed: 05/05/24 Dental Screening Dental Screen Date: 05/05/24 Did you have a dental visit in the last 12 months?: Yes Did you have a dental problem in the last 6 months where you did not have access to dental care?: No Was dental information given to patient?: Patient has dentist HPI 4 month f/u HPI Details Patient's follow up visit / consultation today is done over video conference (iPhone/iPad/[employer]) - this is a TELEHEALTH visit Patient's current medications have been reviewed andverified with patient and/or caregiver/proxy and have been updated accordingly in the medication list Patient states that she has been sick for the past 3 weeks, we increased cough and congestion Recalls that she was running a low-grade fever when she first got sick but the fever has since cleared up Relates that it took her awhile and she was starting to feel better overall when her symptoms got significantly worse again last night States that she is currently running fever and chills and she feels achy all over States that her and a few other family members are sick as well Relates (+) nasal and sinus congestion and mild sore throat States that she has also been coughing on and off lately - coughs up minimal clear to whitish phlegm at times She denies any chest pains, no shortness of breath No nausea/vomiting, no abdominal pain No change in bowel habits noted [facility] Medical History History of substance abuse Obesity (BMI 30-39.9) Asthma ELENA (generalized anxiety disorder) GERD (gastroesophageal reflux disease) Surgical History History of colonoscopy (~2012) History of hemangioma excision History of arthroplasty of left knee History of arthroplasty of right knee History of endometrial ablation History of carpal tunnel release History of arthroscopy of right knee History of section Family History Father No problems noted. Mother No problems noted. Paternal Uncle Myocardial infarction Other Mental health disorder Social History Housing: Apartment Alcohol intake: never Patient Tobacco Use Status: Former Tobacco user Tobacco use type: Cigarette e-Cigarette/Vaping Use: Never Used Second Hand Smoke Exposure: No service: No Current occupational status: unemployed Current occupational exposures/hazards: No Cognitive needs: No Hearing needs: No Vision needs: No Questionnaire PHQ-9 Over the last 2 weeks, how often have you been bothered by any of the following problems? 1. Little interest or pleasure in doing things: not at all 2. Feeling down, depressed, or hopeless: not at all 3. Trouble falling or staying asleep, or sleeping too much: not at all 4. Feeling tired or having little energy: not at all 5. Poor appetite or overeating: not at all 6. Feeling bad about yourself - or that you are a failure or have let yourself or your family down: not at all 7. Trouble concentrating on things, such as reading the newspaper or watching television: not at all 8. Moving or speaking so slowly that other people could have noticed. Or the opposite - being so fidgety or restless that you have been moving around a lot more than usual: not at all 9. Thoughts that you would be better off or of hurting yourself in some way: not at all Total score: 0 Depression Screening Interpretation: Negative Depression Screening Done: Yes 52725 - PHQ-9 Billing: Yes Source: Developed by Drs. Manas Burdick, Ariela Enriquez, Hakan Tong and colleagues, with an educational angi from [employer]. Thrive Questionnaire Date Thrive assessed: 05/05/24 I am a: Patient What is your living situation today?: I have a steady place to live Within the past 12 months, did the food you bought not last and you didn't have the money to get more?: Never true Within the past 12 months, did you worry whether your food would run out before you got money to buy more?: Never true Do you have trouble paying for medicines?: No Do you have trouble getting transportation to medical appointments?: No Do you have trouble paying your heating and electricity bill?: No Do you have trouble taking care of your child, family member or friend?: No Do you have trouble with day-to-day activities such as bathing, preparing meals, shopping, managing finances, etc.?: No Are you currently unemployed and looking for a job?: No Are you interested in more education?: No Please select the resources that you would like help with: None Currently or been in a relationship where the following occur: No concerns reported THRIVE Score: 0 AUDIT C Alcohol Use Questionnaire (AUDIT-C) 1. How often do you have a drink containing alcohol?: Never 3. How often do you have six or more drinks on one occasion?: Never Total Score: 0 Score Reviewed/Action Taken: Yes ELENA-7 AMB Questionnaire ELENA-7 Date ELENA - 7 assessed: 05/05/24 Feeling nervous, anxious, or on edge: 0 = Not at all Not being able to stop or control worryin = Not at all Worrying too much about different things: 0 = Not at all Trouble relaxin = Not at all Being so restless that it is hard to sit still: 0 = Not at all Becoming easily annoyed or irritable: 0 = Not at all Feeling afraid as if something awful might happen: 0 = Not at all Total ELENA-7 score (0-4 normal; 5-9 mild; 10-14 moderate; 15-21 severe): 0 Source: Developed by Drs. Manas Burdick, Ariela Enriquez, Hakan Tong and colleagues, with an educational angi from [employer]. ELENA-7 Assessment Billing ELENA-7 Assessment Tool: ELENA-7 Assessment 42548 Review of Systems Const Reports chills (on and off), Reports fatigue, Reports fever(s), Denies headache(s) and Reports malaise ENT Denies dysphagia, Denies dizziness, Denies otalgia, Denies headache(s), Reports nasal congestion, Denies neck pain, Denies odynophagia, Denies sinus pain and Reports sore throat Card Denies chest pain, Denies palpitations and Denies dyspnea Resp Reports chest congestion, Reports cough (on and off, coughs up minimal clear to whitish phlegm at times), Denies hemoptysis, Denies pain with cough and Denies dyspnea GI Denies abdominal pain, Denies constipation, Denies dysphagia, Denies heartburn, Denies diarrhea, Denies nausea, Denies odynophagia and Denies vomiting Denies nocturia, Denies dysuria and Denies urinary urgency Musc Reports back pain (on and off), Reports myalgias and Denies neck pain Skin/Breast Denies rash Neuro Denies dizziness and Denies headache(s) Endo Reports fatigue and Denies palpitations Physical exam (Primary Care) Vital Signs: Physical examination is not performed as visit / consultation today is done over videoconference - Telehealth visit All physical findings indicated here, if present, are as per patient's and / or caregivers / proxy's report and visual inspection over videoconference, if appropriate or applicable Tobacco/Smoking Status: Tobacco use Status Tobacco use date assessed 05/05/24 05/05/24 11:16 Patient Tobacco Use Status Former Tobacco user 05/05/24 11:16 Tobacco use type Cigarette 05/05/24 11:16 e-Cigarette/Vaping Use Never Used 05/05/24 11:16 PHQ-9: PHQ-9 Score PHQ-9: Total score 0 05/05/24 12:00 Depression Screening Interpretation: Negative Thrive Assessment: Date of Thrive Assessment Date Thrive assessed 05/05/24 05/05/24 11:16 Currently or been in a relationship where the following occur: No concerns repor jyotsna Telehealth Telehealth Telehealth Platform: Telephone Location of provider rendering services: practice address Location of patient: address on file Patient Identification confirmed using: Name, : Yes Telehealth method: video ([employer] ) Patient verbally consented to treatment: Yes Patient verbally consented to billing insurance company: Yes Patient informed of any privacy concerns related to visit: Yes Minutes spent on Phone/Video with Pt.: 17 Coding Level of Care Code Tele Est Pt Level 3 (77573) Diagnoses Respiratory tract infection J98.8 Additional Codes ELENA-7 Assessment Billing - ELENA-7 Assessment Tool: ELENA-7 Assessment 21875 ([id number]) PHQ-9 - 85844 - PHQ-9 Billing: Yes ([id number]) Assessment & Plan Assessment & Plan (1) Respiratory tract infection: Code(s): J98.8 - Other specified respiratory disorders Category: Medical Plan: Will have patient go to the lab and get a viral panel done [facility] Advised that further treatment will depend on the results of her tests Have advised her to continue on OTC cough/cold meds PRN and OTC Tylenol PRN for symptomatic relief for now Have also encouraged her to increase her oral fluid intake Plan To return as scheduled in October 2024 for her annual physical examination Have reminded patient to make sure she gets her labs done prior to her next appointment in a few months Orders: Orders Lipid Panel 10/21/24 E78.00 - Pure hypercholesterolemia, unspecified, Z00.00 - Encounter for general adult medical examination without abnormal findings TSH reflex Free T4 10/21/24 E78.00 - Pure hypercholesterolemia, unspecified, Z00.00 - Encounter for general adult medical examination without abnormal findings Vitamin D 25-OH Total 10/21/24 E55.9 - Vitamin D deficiency, unspecified, Z00.00 - Encounter for general adult medical examination without abnormal findin gs SARS-CoV2/FLU/RSV 05/05/24 J98.8 - Other specified respiratory disorders Complete Blood Count Auto Diff 10/21/24 D64.9 - Anemia, unspecified, Z00.00 - Encounter for general adult medical examination without abnormal findings Comprehensive [place]. Panel Fast 10/21/24 E78.00 - Pure hypercholesterolemia, unspecified, Z00.00 - Encounter for general adult medical examination without abnormal findings UA CC w/rflx Micro + Cult 10/21/24 R30.0 - Dysuria, Z00.00 - Encounter for general adult medical examination without abnormal findings Medications: Changed From buprenorphine-naloxone 8-2 mg (Suboxone) 2/3 film buccally daily; 30 ea 0RF To buprenorphine-naloxone 8-2 mg (Suboxone) 2/3 film alternating with 1/2 film buccally every other day;
== END 2024-05-05 13:25 | disposition home or self-care (01) ==
LOC: HO.HMCH 11:14
PROVIDERS: PCP Internal Medicine; Visit Provider Internal Medicine
DX: J98.8 Other specified respiratory disorders (principal)

== ENCOUNTER 2024-10-05 10:45 | Outpatient (REF) | payer BC, SELFPAY ==
--- NOTE | ~2024-10-05 | XR_ITS ---
EXAMINATION: XR FOOT, RIGHT CLINICAL INFORMATION: M79.671 - Pain in right foot COMPARISON: None available. TECHNIQUE: AP, lateral, and oblique views of the right foot. FINDINGS: No fracture, dislocation, or suspicious bone lesion. There is a mild pes planus deformity. Mild to moderate osteoarthrosis present within the first MTP joint, and throughout the dorsal intertarsal and tarsometatarsal joints. There is a moderate-sized plantar calcaneal spur. There is mild subcutaneous soft tissue edema diffusely. XR/XR foot RT min 3V IMPRESSION: 1. No acute bony abnormalities of the right foot. 2. Mild pes planus. 3. Osteoarthritic changes as discussed. 4. Moderate-sized plantar calcaneal spur. 5. Diffuse mild subcutaneous soft tissue edema. Electronically signed by: Dimitry Love MD 10/05/2024 11:12 AM EDT
== END 2024-10-05 10:46 | disposition home or self-care (01) ==
LOC: HO.XRAY 10:45
PROVIDERS: PCP Internal Medicine; Visit Provider Internal Medicine
DX: M79.671 Pain in right foot (principal)
CPT/HCPCS: 73630

== ENCOUNTER → 2024-10-05 10:50 | Outpatient (BNV) | payer BC, SELFPAY | PROVIDERS: PCP Internal Medicine; Visit Provider Radiology Diagnostic Radiology | DX: M77.31 Calcaneal spur, right foot (principal) | CPT/HCPCS: 73630 ==

== ENCOUNTER 2024-10-06 13:47 | Outpatient (AMB) | payer BC, SELFPAY ==
[2024-10-06 13:49] VITALS: BP 116/68; PULSE 70; TEMP 36.4; O2SAT 99; BMI 33.7
--- NOTE | 2024-10-06 13:49 | AM.OFFWIN_ITS ---
Intake Vital Signs 10/06/24 13:49 Height 5 ft 3 in Weight 190 lb BMI 33.7 BP 116/68 Blood Pressure Location Lt brachial Position Sitting Pulse 70 Pulse Source Pulse Oximeter Temp 97.5 F Temp Source Oral Pulse Oximetry (%) 99 Oxygen Delivery Method Room Air Intake Visit Reasons: EP-rt foot pain & swollen Intake Note: presents with worsening right foot pain and swelling from a fall 10 days ago Patient Tobacco Use Status: Former Tobacco user Allergies morphine Allergy (Intermediate, Verified 10/06/24 13:50) chest heaviness Do you need a note to return to daycare/school/sports/work: No HPI HPI Comments History of Present Illness Details This is a 59-year-old female presenting for evaluation of right foot pain. Patient states approximately 10 days [place] the beach and when going back to her vehicle in the parking lot her sandal became stuck in a crack on med and she fell the ground. Patient denies any loss of consciousness as a result of this injury. Patient is complaining of lateral right foot pain as well as pain on the dorsal surface of her right 2nd - 5th toes. Patient has been taking Tylenol only without relief of her discomfort. Patient states her primary care physician ordered imaging of her right foot which she had done yesterday. Patient is unaware of the results of this imaging study. [facility] Medical History History of substance abuse Obesity (BMI 30-39.9) Asthma ELENA (generalized anxiety disorder) GERD (gastroesophageal reflux disease) Surgical History History of colonoscopy (~2012) History of hemangioma excision History of arthroplasty of left knee History of arthroplasty of right knee History of endometrial ablation History of carpal tunnel release History of arthroscopy of right knee History of section Family History Father No problems noted. Mother No problems noted. Paternal Uncle Myocardial infarction Other Mental health disorder Social History Housing: Apartment Alcohol intake: never Patient Tobacco Use Status: Former Tobacco user Tobacco use type: Cigarette e-Cigarette/Vaping Use: Never Used Second Hand Smoke Exposure: No service: No Current occupational status: unemployed Current occupational exposures/hazards: No Cognitive needs: No Hearing needs: No Vision needs: No Review of Systems Const All systems reviewed & are unremarkable except as noted in HPI and below Denies frequent falls and Denies headache(s) Eyes Reports no additional complaints ENT Reports no additional complaints and Denies headache(s) Card Reports no additional complaints Resp Reports no additional complaints GI Reports no additional complaints Reports no additional complaints Musc Details: right foot pain Neuro Reports no additional complaints, Denies frequent falls and Denies headache(s) Psych Reports no additional complaints Endo Reports no additional complaints Eber/Lymph Reports no additional complaints Aller/Immun Reports no additional complaints Physical Exam Vital Signs: BMI result Body Mass Index 33.7 Const General: cooperative, healthy appearing, comfortable, no acute distress, well developed, alert, awake and Physically active Nutritional Appearance: overweight Orientation/consciousness: patient oriented x3 Limitations: no limitations Skin General skin exam: no rashes or lesions noted Trauma: no lacerations or abrasions Wounds: no wounds Nails: normal (nails of right foot intact without trauma or avulsion) Neuro General: patient oriented x3 Gait exam (Neuro): Normal gait present Extrem Right lower extremity: normal capillary refill, edema (lateral aspect of right foot with non.pitting edema, no erythema) Details: non-pitting and foot Details: normal capillary refill, normal to inspection, tenderness (TTP right 5th me tatarsal and 2nd/3rd toes; right ankle ROM intact), toes with normal ROM and tendon exam Details: active flexion normal and active extension normal; no unusual warmth, no abrasion and no ecchymosis Psych Appearance: grossly normal Mental Status: mental status grossly normal Insight: Good insight present (Psych) Judgement: Good judgement present (Psych) Results Reviewed Results Reviewed: No acute findings imaging of right foot from 10/05/2024 Assessment & Plan Assessment & Plan (1) Right foot pain: Comment: There are no acute findings noted on imaging of the right foot. Code(s): M79.671 - Pain in right foot Plan: Aleve OTC twice daily x7 days; patient is encouraged to keep right lower extremity elevated while at rest and use ice at 20 minute intervals following activity. Additionally, patient is urged to wear a supportive lace-up shoe when ambulating. Coding Level of Care Code Est Pt Level 3 (08835) Diagnoses Right foot pain M79.671 Time Spent (min) 20
== END 2024-10-06 14:39 | disposition home or self-care (01) ==
PROVIDERS: PCP Internal Medicine; Visit Provider Physician Assistant
DX: M79.671 Pain in right foot (principal)

== ENCOUNTER 2024-10-16 11:05 | Outpatient (AMB) | payer BC, SELFPAY ==
[2024-10-16 11:11] VITALS: BP 118/76; PULSE 76; O2SAT 96; BMI 33.5
--- NOTE | 2024-10-16 11:11 | A.OFFPC_ITS ---
Vital Signs 10/16/24 11:11 Height 5 ft 3 in Weight 189 lb 6 oz BMI 33.5 BP 118/76 Blood Pressure Location Lt brachial Position Sitting Pulse 76 Pulse Source Pulse Oximeter Pulse Oximetry (%) 96 Oxygen Delivery Method Room Air Intake Visit Reasons: s/p fall with headache Medical Device Sales Representative Required: No Accompanied by: Self / Same As Patient Allergies morphine Allergy (Intermediate, Verified 10/16/24 11:45) chest heaviness Medication List - Last Reconciled 10/16/24 by Kobe Byrd MD albuterol sulfate 90 mcg/actuation 2 puffs PO QID PRN 30 days buprenorphine-naloxone 8-2 mg (Suboxone) 2/3 film alternating with 1/2 film buccally every other day; fluticasone propionate 110 mcg/actuation 2 inhalations inhalation BID lorazepam 0.5 mg PO .QD-BID PRN 30 days omeprazole 40 mg (2 x 20 mg) PO DAILY Tobacco use date assessed: 10/16/24 Dental Screening Dental Screen Date: 10/16/24 Did you have a dental visit in the last 12 months?: Yes Did you have a dental problem in the last 6 months where you did not have access to dental care?: No Was dental information given to patient?: Patient has dentist HPI s/p fall with headache HPI Details Patient comes in today for evaluation Relates that she stepped into [place]ole [place] the [place] 09/26/2024 and fell face first onto the pavement, sustaining some abrasions on her forehead and nose as well as a couple of chipped front teeth States that she did not pass out after she fell and was able to get up right away without any acute symptoms at the time other than pain over her forehead, nose and face but noted that she started experiencing recurrent headaches later that week that are mostly localized around the frontal area of her head and that her headaches have been recurring until now although she feels that her headaches may be starting to ease up somewhat currently States that she has also been feeling dizzy at times over the past 2 to 3 weeks and notes (+) nausea and some photophobia associated with her headaches but denies any vomiting Relates that she went to see her dentist the day after she fell for her chipped teeth and they 'filed' down her teeth for her but did not do much else procedure-toney at the time She denies any chest pains, no increased SOB No abdominal pain and no change in bowel habits noted Adds that her right ankle and foot has been swelling up on and off since her fall She requested for and had x-rays done a couple of weeks ago on 10/05/24 - x-rays showed only (+) soft tissue swelling with no acute fractures [facility] Medical History History of substance abuse Obesity (BMI 30-39.9) Asthma ELENA (generalized anxiety disorder) GERD (gastroesophageal reflux disease) Surgical History History of colonoscopy (~2012) History of hemangioma excision History of arthroplasty of left knee History of arthroplasty of right knee History of endometrial ablation History of carpal tunnel release History of arthroscopy of right knee History of section Family History Father No problems noted. Mother No problems noted. Paternal Uncle Myocardial infarction Other Mental health disorder Social History Housing: Apartment Alcohol intake: never Patient Tobacco Use Status: Former Tobacco user Tobacco use type: Cigarette e-Cigarette/Vaping Use: Never Used Second Hand Smoke Exposure: No service: No Current occupational status: unemployed Current occupational exposures/hazards: No Cognitive needs: No Hearing needs: No Vision needs: No Questionnaire PHQ-9 Over the last 2 weeks, how often have you been bothered by any of the following problems? 1. Little interest or pleasure in doing things: not at all 2. Feeling down, depressed, or hopeless: not at all 3. Trouble falling or staying asleep, or sleeping too much: several days 4. Feeling tired or having little energy: not at all 5. Poor appetite or overeating: not at all 6. Feeling bad about yourself - or that you are a failure or have let yourself or your family down: not at all 7. Trouble concentrating on things, such as reading the newspaper or watching television: not at all 8. Moving or speaking so slowly that other people could have noticed. Or the opposite - being so fidgety or restless that you have been moving around a lot more than usual: not at all 9. Thoughts that you would be better off or of hurting yourself in some way: not at all Total score: 1 Depression Screening Interpretation: Negative Depression Screening Done: Yes 09932 - PHQ-9 Billing: Yes Source: Developed by Drs. Manas Burdick, Ariela Enriquez, Hakan Tong and colleagues, with an educational angi from [employer]. Thrive Questionnaire Date Thrive assessed: 10/16/24 I am a: Patient What is your living situation today?: I have a steady place to live Within the past 12 months, did the food you bought not last and you didn't have the money to get more?: Never true Within the past 12 months, did you worry whether your food would run out before you got money to buy more?: Never true Do you have trouble paying for medicines?: No Do you have trouble getting transportation to medical appointments?: No Do you have trouble paying your heating and electricity bill?: No Do you have trouble taking care of your child, family member or friend?: No Do you have trouble with day-to-day activities such as bathing, preparing meals, shopping, managing finances, etc.?: No Are you currently unemployed and looking for a job?: No Are you interested in more education?: No Please select the resources that you would like help with: None Currently or been in a relationship where the following occur: No concerns reported THRIVE Score: 0 AUDIT C Alcohol Use Questionnaire (AUDIT-C) 1. How often do you have a drink containing alcohol?: Never 3. How often do you have six or more drinks on one occasion?: Never Total Score: 0 Score Reviewed/Action Taken: Yes ELENA-7 AMB Questionnaire ELENA-7 Date ELENA - 7 assessed: 10/16/24 Feeling nervous, anxious, or on edge: 0 = Not at all Not being able to stop or control worryin = Not at all Worrying too much about different things: 0 = Not at all Trouble relaxin = Not at all Being so restless that it is hard to sit still: 0 = Not at all Becoming easily annoyed or irritable: 0 = Not at all Feeling afraid as if something awful might happen: 0 = Not at all Total ELENA-7 score (0-4 normal; 5-9 mild; 10-14 moderate; 15-21 severe): 0 Source: Developed by Drs. Manas Burdick, Ariela Enrqiuez, Hakan Tong and colleagues, with an educational angi from [employer]. Review of Systems Const Denies chills, Reports fatigue, Denies fever(s) and Reports headache(s) (recurrent - see HPI) Eyes Denies blurry vision and Reports photophobia ENT Denies dysphagia, Denies dizziness, Denies otalgia, Reports headache(s) (recurrent - see HPI), Denies neck pain, Denies odynophagia and Denies sore throat Card Denies chest pain, Denies palpitations and Denies dyspnea Resp Denies chest congestion, Denies cough and Denies dyspnea GI Denies abdominal pain, Denies constipation, Denies dysphagia, Denies heartburn, Denies diarrhea, Reports nausea (on and off, associated with her headaches lately), Denies odynophagia and Denies vomiting Denies difficulty voiding, Denies nocturia and Denies dysuria Musc Denies back pain, Reports arthralgias (right ankle/foot - see HPI) and Denies neck pain Skin/Breast Denies rash Neuro Denies dizziness and Reports headache(s) (recurrent - see HPI) Endo Reports fatigue and Denies palpitations Physical exam (Primary Care) Vital Signs: Last Vital Signs Pulse 76 10/16/24 11:11 BP 118/76 10/16/24 11:11 Pulse Ox 96 10/16/24 11:11 Oxygen Delivery Method Room Air 10/16/24 11:11 BMI result Body Mass Index 33.5 Tobacco/Smoking Status: Tobacco use Status Tobacco use date assessed 10/16/24 10/16/24 11:17 Patient Tobacco Use Status Former Tobacco user 10/16/24 11:17 Tobacco use type Cigarette 10/16/24 11:17 e-Cigarette/Vaping Use Never Used 10/16/24 11:17 PHQ-9: PHQ-9 Score PHQ-9: Total score 1 10/16/24 11:17 Depression Screening Interpretation: Negative Thrive Assessment: Date of Thrive Assessment Date Thrive assessed 10/16/24 10/16/24 11:17 Currently or been in a relationship where the following occur: No concerns reported Const General: no acute distress and alert Orientation/consciousness: patient oriented x3 HENMT Head: Yes normal to inspection Ears: TM's normal bilaterally and EAC's normal Throat: Yes posterior oropharynx normal and Yes tonsils normal (no TP congestion noted) Eyes Direct Ophthalmoscopy: photophobia Neck Neck: Yes supple and No lymphadenopathy Thyroid: Thyroid normal Resp Auscultation: clear to auscultation bilaterally, no rales and no wheezes Cardio Rate: regular rate Rhythm: regular rhythm Heart sounds: no murmurs GI Palpation (GI): Soft to palpation and nontender Auscultation: normal bowel sounds General: Yes no CVA tenderness Back/Spine/Pelvis Back: no CVA tenderness Skin Rashes: no rashes Neuro General: patient oriented x3, moves all extremities, no focal motor deficits and CN's II-XI intact bilaterally Cognition (Neuro): normal cognition Extrem General: Yes no clubbing, cyanosis or edema Coding Level of Care Code Est Pt Level 3 (04826) Diagnoses Recurrent headache R51.9 Status post fall Z91.81 Right foot pain M79.671 Additional Codes PHQ-9 - 36481 - PHQ-9 Billing: Yes ([id number]) Assessment & Plan Assessment & Plan (1) Recurrent headache: Code(s): R51.9 - Headache, unspecified Category: Medical (2) Status post fall: Code(s): Z91.81 - History of falling Category: Medical (3) Right foot pain: Comment: There are no acute findings noted on imaging of the right foot. Code(s): M79.671 - Pain in right foot Category: Medical Plan Patient reports that she has been experiencing recurrent headaches associated with on and off dizziness, photophobia and nausea ever since she fell face forward onto pavement back on 09/26/2024 when [place] was [place] the beach Reports also experiencing increased fatigue for the past few weeks All these raise concerns about possible concussion injury related to her recent fall and head trauma Will send patient for a head CT WILMAN for further evaluation Have discussed concussion injuries with patient and educated her on what to expect and things she can do to help hasten or enhance her recovery from concussion injuries She had x-rays of the right ankle/foot done a couple of weeks ago that came out only showing (+) soft tissue swelling; she does have OA changes in the foot but has no acute injuries or fractures noted To return as scheduled next month for her annual physical examination Orders: Orders CT head/brain wo IV con Today R51.9 - Headache, unspecified, S09.90XA - Unspecified injury of head, initial encounter, Z91.81 - History of falling
== END 2024-10-16 11:57 | disposition home or self-care (01) ==
LOC: HO.HMCH 11:06
PROVIDERS: PCP Internal Medicine; Visit Provider Internal Medicine
DX: R51.9 Headache, unspecified (principal); Z91.81 History of falling; M79.671 Pain in right foot

== ENCOUNTER → 2024-10-16 11:05 | Outpatient (BNVA) | payer BC, SELFPAY | PROVIDERS: PCP Internal Medicine; Visit Provider Internal Medicine | DX: M79.671 Pain in right foot (principal); R51.9 Headache, unspecified; Z91.81 History of falling | CPT/HCPCS: 96127 ==

== ENCOUNTER 2024-10-31 08:53 | Outpatient (AMB) | payer BC, SELFPAY ==
[2024-10-31 08:57] VITALS: BP 106/80; PULSE 72; O2SAT 98; BMI 33.0
--- NOTE | 2024-10-31 08:57 | MHC.PC.OV ---
Vital Signs 10/31/24 08:57 Height 5 ft 3 in Weight 186 lb 2 oz BMI 33.0 BP 106/80 Blood Pressure Location Lt brachial Position Sitting Pulse 72 Pulse Source Pulse Oximeter Pulse Oximetry (%) 98 Oxygen Delivery Method Room Air Intake Visit Reasons: Annual Exam Road Marker Required: No Accompanied by: Self / Same As Patient Allergies morphine Allergy (Intermediate, Verified 10/31/24 09:17) chest heaviness Medication List - Last Reconciled 10/31/24 by Kobe Byrd MD albuterol sulfate 90 mcg/actuation 2 puffs PO QID PRN 30 days buprenorphine-naloxone 8-2 mg (Suboxone) 2/3 film alternating with 1/2 film buccally every other day; lorazepam 0.5 mg PO .QD-BID PRN 30 days omeprazole 40 mg (2 x 20 mg) PO DAILY Pulmicort Flexhaler 90 mcg/actuation (budesonide) 2 inhalations inhalation BID NS Tobacco use date assessed: 10/31/24 Dental Screening Dental Screen Date: 10/31/24 HPI Annual Exam HPI Details Patient comes in today for her annual physical examination States that she has been unable to lift her left arm up completely when working out - notes that she was not even really aware of this and her daughter, who was working out with her, was the one who actually noticed that her left arm was not going up all the way when she raises her arms She now admits to experiencing some pain in her left shoulder for the past couple of months whenever she raises her arm but did not think much of it other than it was likely a part of her usual aches and pains She denies any Hx of injury or surgery to her left shoulder but is now not sure if her fall in September 2024 contributed to this States that she also has been experiencing on and off brief sharp, shooting pains over her lower back, especially whenever she is getting up from sitting for a while She also denies any Hx of recent lower back injury or trauma She still (+) on and off headaches that have been going on for over a month, and she is now scheduled for head CT on 11/11/2024 She denies any dizziness Denies any chest pains, no increased SOB (+) nausea at times that are associated with her headaches; no vomiting, no abdominal pain and no change in bowel habits noted She denies any acute urinary symptoms She was not able to get her follow up labs done prior to her appointment today She is past due for all of her cancer screenings - colonoscopy was last done in 2012 at [facility] and repeat colonoscopy was due in 2022 Her mammogram was last done in October 2023 and her last pap smear/gynecology exam was done with Dr. Rosenberg at [facility] a few years ago (Dr. Rosenberg reportedly last year) [facility] was last [facility] Medical History History of substance abuse Obesity (BMI 30-39.9) Asthma ELENA (generalized anxiety disorder) GERD (gastroesophageal reflux disease) Surgical History History of colonoscopy (~2012) History of hemangioma excision History of arthroplasty of left knee History of arthroplasty of right knee History of endometrial ablation History of carpal tunnel release History of arthroscopy of right knee History of section Family History Father No problems noted. Mother No problems noted. Paternal Uncle Myocardial infarction Other Mental health disorder Social History Housing: Apartment Alcohol intake: never Patient Tobacco Use Status: Former Tobacco user Tobacco use type: Cigarette e-Cigarette/Vaping Use: Never Used Second Hand Smoke Exposure: No service: No Current occupational status: unemployed Current occupational exposures/hazards: No Cognitive needs: No Hearing needs: No Vision needs: No Questionnaire PHQ-9 Over the last 2 weeks, how often have you been bothered by any of the following problems? 1. Little interest or pleasure in doing things: not at all 2. Feeling down, depressed, or hopeless: not at all 3. Trouble falling or staying asleep, or sleeping too much: several days 4. Feeling tired or having little energy: not at all 5. Poor appetite or overeating: not at all 6. Feeling bad about yourself - or that you are a failure or have let yourself or your family down: not at all 7. Trouble concentrating on things, such as reading the newspaper or watching television: not at all 8. Moving or speaking so slowly that other people could have noticed. Or the opposite - being so fidgety or restless that you have been moving around a lot more than usual: not at all 9. Thoughts that you would be better off or of hurting yourself in some way: not at all Total score: 1 Depression Screening Interpretation: Negative Depression Screening Done: Yes 47396 - PHQ-9 Billing: Yes Source: Developed by Drs. Manas Burdick, Ariela Enriquez, Hakan Tong and colleagues, with an educational angi from [employer]. Thrive Questionnaire Date Thrive assessed: 10/31/24 I am a: Patient What is your living situation today?: I have a steady place to live Within the past 12 months, did the food you bought not last and you didn't have the money to get more?: Never true Within the past 12 months, did you worry whether your food would run out before you got money to buy more?: Never true Do you have trouble paying for medicines?: No Do you have trouble getting transportation to medical appointments?: No Do you have trouble paying your heating and electricity bill?: No Do you have trouble taking care of your child, family member or friend?: No Do you have trouble with day-to-day activities such as bathing, preparing meals, shopping, managing finances, etc.?: No Are you currently unemployed and looking for a job?: No Are you interested in more education?: No Please select the resources that you would like help with: None Currently or been in a relationship where the following occur: No concerns reported THRIVE Score: 0 AUDIT C Alcohol Use Questionnaire (AUDIT-C) 1. How often do you have a drink containing alcohol?: Never 3. How often do you have six or more drinks on one occasion?: Never Total Score: 0 Score Reviewed/Action Taken: Yes ELENA-7 AMB Questionnaire ELENA-7 Date ELENA - 7 assessed: 10/31/24 Feeling nervous, anxious, or on edge: 0 = Not at all Not being able to stop or control worryin = Not at all Worrying too much about different things: 0 = Not at all Trouble relaxin = Not at all Being so restless that it is hard to sit still: 0 = Not at all Becoming easily annoyed or irritable: 0 = Not at all Feeling afraid as if something awful might happen: 0 = Not at all Total ELENA-7 score (0-4 normal; 5-9 mild; 10-14 moderate; 15-21 severe): 0 Source: Developed by Drs. Manas Burdick, Ariela Enriquez, Hakan Tong and colleagues, with an educational angi from [employer]. Review of Systems Const Denies chills, Denies fatigue, Denies fever(s), Reports headache(s) (recurrent) and Denies malaise Eyes Denies blurry vision, Denies change in vision, Denies irritation and Denies itchy eyes ENT Denies dysphagia, Denies dizziness, Denies otalgia, Reports headache(s) (recurrent), Denies nasal congestion, Denies neck pain, Denies odynophagia, Denies sinus pain and Denies sore throat Card Denies chest pain, Denies rapid heart rate, Denies irregular heart rhythm, Denies palpitations and Denies dyspnea Resp Denies chest congestion, Denies cough, Denies dyspnea and Denies wheezing GI Denies abdominal pain, Denies bloating, Denies constipation, Denies dysphagia, Denies heartburn, Denies diarrhea, Denies nausea, Denies odynophagia and Denies vomiting Denies hematuria, Denies difficulty voiding, Denies nocturia, Denies dysuria, Denies urinary incontinence and Denies urinary urgency Musc Reports back pain (on and off sharp pains over the lower back - see HPI), Reports arthralgias (left shoulder), Denies joint swelling, Denies muscle weakness and Denies neck pain Skin/Breast Denies breast pain, Denies breast mass, Denies change in pigmentation, Denies lesions, Denies rash and Denies unusual bruising Neuro Denies dizziness, Reports headache(s) (recurrent) and Denies paresthesias Psych Denies anxiety and Denies depression Endo Denies fatigue and Denies palpitations Eber/Lymph Denies easy bruising Aller/Immun Denies itchy eyes and Denies wheezing Physical exam (Primary Care) Vital Signs: Last Vital Signs Pulse 72 10/31/24 08:57 BP 106/80 10/31/24 08:57 Pulse Ox 98 10/31/24 08:57 Oxygen Delivery Method Room Air 10/31/24 08:57 BMI result Body Mass Index 33.0 Tobacco/Smoking Status: Tobacco use Status Tobacco use date assessed 10/31/24 10/31/24 09:06 Patient Tobacco Use Status Former Tobacco user 10/31/24 09:06 Tobacco use type Cigarette 10/31/24 09:06 e-Cigarette/Vaping Use Never Used 10/31/24 09:06 PHQ-9: PHQ-9 Score PHQ-9: Total score 1 10/31/24 09:47 Depression Screening Interpretation: Negative Thrive Assessment: Date of Thrive Assessment Date Thrive assessed 10/31/24 10/31/24 09:06 Currently or been in a relationship where the following occur: No concerns reported Const General: no acute distress, alert and awake Orientation/consciousness: patient oriented x3 HENMT Head: Yes normocephalic and Yes atraumatic Ears: external ears normal, TM's normal bilaterally and EAC's normal General nose exam: No nasal discharge present Face and sinus: Yes normal facial exam and Yes sinuses nontender Teeth and gingiva: dentition normal Throat: Yes posterior oropharynx normal and Yes tonsils normal (no TP congestion) Eyes Eyelids: Yes eyelids normal Conjunctivae: conjunctivae normal Pupils: Equal, round and reactive pupils present EOM: EOMs intact bilaterally Neck Neck: Yes no lymphadenopathy and Yes supple Thyroid: Thyroid normal Resp Auscultation: clear to auscultation bilaterally, no rales and no wheezes Cardio Rate: regular rate Rhythm: regular rhythm Heart sounds: no murmurs GI Palpation (GI): Soft to palpation, nontender and No hepatosplenomegaly present Auscultation: normal bowel sounds General: Yes no CVA tenderness Back/Spine/Pelvis Back: no CVA tenderness Thoracic/Lumbar Spine: No thoracic spinal tenderness and lumbar spinal tenderness (mild) Skin Lesions: no lesions Rashes: no rashes Neuro General: patient oriented x3, moves all extremities, no focal motor deficits and CN's II-XI intact bilaterally Cranial nerves: Yes Equal, round and reactive pupils present Cognition (Neuro): normal cognition Gait exam (Neuro): Normal gait present Extrem General: Yes no clubbing, cyanosis or edema Left upper extremity: shoulder/upper arm Details: tenderness Location: of the A-C joint (minimal) and normal ROM Coding Level of Care Code Est Pt Prev Care 40-64y(16307) Diagnoses Annual physical exam Z00.00 Left shoulder pain, unspecified chronicity M25.512 Chronicity: unspecified Midline low back pain without sciatica, unspecified chronicity M54.50 Chronicity: unspecified Back pain laterality: midline Sciatica presence: without sciatica Recurrent headache R51.9 Mild intermittent asthma without complication J45.20 Asthma severity: mild Asthma persistence: intermittent Asthma complication type: uncomplicated Palpitations R00.2 Gastroesophageal reflux disease, unspecified whether esophagitis present K21.9 Esophagitis presence: esophagitis presence not specified History of substance abuse F19.11 ELENA (generalized anxiety disorder) F41.1 Obesity (BMI 30-39.9) E66.9 Cervical cancer screening Z12.4 Breast cancer screening by mammogram Z12.31 Colon cancer screening Z12.11 Additional Codes PHQ-9 - 35898 - PHQ-9 Billing: Yes ([id number]) Assessment & Plan Assessment & Plan (1) Annual physical exam: Code(s): Z00.00 - Encounter for general adult medical examination without abnormal findings Category: Medical Plan: Check labs - patient is reminded that her lab orders were placed previously and she can go and get these done at any time with no appointments needed She is also past due for all of her cancer screenings and will be referred for these (2) Left shoulder pain: Code(s): M25.512 - Pain in left shoulder Category: Medical Qualifiers: Chronicity: unspecified Qualified Code(s): M25.512 - Pain in left shoulder Plan: Will send patient for x-rays of the left shoulder for further evaluation Discussed with patient that she most likely has some bursitis/tendinitis of the left shoulder (3) Low back pain: Code(s): M54.50 - Low back pain, unspecified Category: Medical Qualifiers: Chronicity: unspecified Back pain laterality: midline Sciatica presence: without sciatica Qualified Code(s): M54.50 - Low back pain, unspecified Plan: Will send patient for x-rays of the lumbar spine for further evaluation (4) Recurrent headache: Code(s): R51.9 - Headache, unspecified Category: Medical Plan: (+) recurrent headaches associated with on and off dizziness, photophobia and nausea ever since she fell face forward onto pavement [place] 09[place]26[place]2024 [place], with increased fatigue over the past few weeks She was sent for and is now scheduled for a head CT for further evaluation in a couple of weeks on 11/11/2024 (5) Asthma: Code(s): J45.909 - Unspecified asthma, uncomplicated Category: Medical Qualifiers: Asthma severity: mild Asthma persistence: intermittent Asthma complication type: uncomplicated Qualified Code(s): J45.20 - Mild intermittent asthma, uncomplicated Plan: Controlled Patient used to be on Flovent HFA 110 mcg 2 inhalations BID but states that she has only been using it on an as-needed basis for the past couple of years and she hardly has had to use it We switched her recently over to Pulmicort due to insurance no longer covering Flovent - states that she has also been using her Pulmicort as needed lately She also has Albuterol HFA to use at 1 to 2 inhalations Q 6 hours PRN (6) Palpitations: Code(s): R00.2 - Palpitations Category: Medical Plan: Patient states that she has not had any symptoms of palpitations lately and felt that they have mostly subsided All of patient's work ups done last year, including her labs, echocardiogram and Holter monitor, came back normal or unrevealing Her echocardiogram came out completely normal, with no valvular pathology Extended Holter monitor also came back normal - baseline rhythm is NSR with average HR of 71 bpm, no significant pauses or arrhythmias noted and patient reported 2 events that correlated with NSR Have advised patient that her symptoms were likely due to anxiety and as they have not been bothering her lately, we will just continue observing for now (7) GERD (gastroesophageal reflux disease): Code(s): K21.9 - Gastro-esophageal reflux disease without esophagitis Category: Medical Qualifiers: Esophagitis presence: esophagitis presence not specified Qualified Code(s): K21.9 - Gastro-esophageal reflux disease without esophagitis Plan: Dietary restrictions reinforced Continue Omeprazole 20 mg QD (8) History of substance abuse: Code(s): F19.11 - Other psychoactive substance abuse, in remission Category: Medical Plan: Continue Suboxone 8-2 mg 2/3 film QD - patient goes to her Suboxone clinic in [place], [place] (9) ELENA (generalized anxiety disorder): Code(s): F41.1 - Generalized anxiety disorder Category: Medical Plan: Continue Lorazepam 0.5 mg 1 to 2 times a day as needed - Rx refilled (10) Obesity (BMI 30-39.9): Code(s): E66.9 - Obesity, unspecified Category: Medical Plan: Reinforced diet/exercise as tolerated/lose weight (11) Cervical cancer screening: Code(s): Z12.4 - Encounter for screening for malignant neoplasm of cervix Category: Medical Plan: Will refer her to the [facility] for her yearly gynecology exam and pap smear (12) Breast cancer screening by mammogram: Code(s): Z12.31 - Encounter for screening mammogram for malignant neoplasm of breast Category: Medical Plan: She will be due for her annual mammogram at the end of the month - mammogram ordered (13) Colon cancer screening: Code(s): Z12.11 - Encounter for screening for malignant neoplasm of colon Category: Medical Plan: She was due for repeat colonoscopy in 2022 (last done in 2012) - per request, will refer her to [facility] for repeat colonoscopy Plan Follow up in 6 months Orders: Orders MM tomosynthesis screening BI Today Z12.31 - Encounter for screening mammogram for malignant neoplasm of breast XR shoulder LT min 2V Today M25.512 - Pain in left shoulder Referrals Gastroenterology Referral Z12.11 - Encounter for screening for malignant neoplasm of colon [employer] Referral Z12.4 - Encounter for screening for malignant neoplasm of cervix Medications: Refilled Pulmicort Flexhaler 90 mcg/actuation (budesonide) 2 inhalations inhalation BID 1 ea 5RF NS J45.20 - Mild intermittent asthma, uncomplicated
== END 2024-10-31 09:31 | disposition home or self-care (01) ==
LOC: HO.HMCH 08:54
PROVIDERS: PCP Internal Medicine; Visit Provider Internal Medicine
DX: Z00.00 Encounter for general adult medical examination without abnormal findings (principal); F19.11 Other psychoactive substance abuse, in remission; E66.9 Obesity, unspecified; Z68.33 Body mass index [BMI] 33.0-33.9, adult; M25.512 Pain in left shoulder; M54.50 Low back pain, unspecified; R51.9 Headache, unspecified; J45.20 Mild intermittent asthma, uncomplicated; R00.2 Palpitations; K21.9 Gastro-esophageal reflux disease without esophagitis; F41.1 Generalized anxiety disorder; Z12.31 Encounter for screening mammogram for malignant neoplasm of breast

== ENCOUNTER → 2024-10-31 08:53 | Outpatient (BNVA) | payer BC, SELFPAY | PROVIDERS: PCP Internal Medicine; Visit Provider Internal Medicine | DX: Z00.00 Encounter for general adult medical examination without abnormal findings (principal); M25.512 Pain in left shoulder; M54.50 Low back pain, unspecified; R51.9 Headache, unspecified; J45.20 Mild intermittent asthma, uncomplicated; R00.2 Palpitations; K21.9 Gastro-esophageal reflux disease without esophagitis; F19.11 Other psychoactive substance abuse, in remission; F41.1 Generalized anxiety disorder; E66.9 Obesity, unspecified; Z68.33 Body mass index [BMI] 33.0-33.9, adult | CPT/HCPCS: 96127 ==

== ENCOUNTER 2024-12-07 06:57 | Outpatient (REF) | payer BC, SELFPAY ==
--- NOTE | ~2024-12-07 | XR_ITS ---
EXAMINATION: XR SHOULDER 2 OR MORE VIEWS LEFT HISTORY: M25.512 - Pain in left shoulder COMPARISON: There are no prior studies available for comparison. FINDINGS: Four views of the left shoulder are submitted. Osseous mineralization is normal. There is no fracture or dislocation. There is severe osteoarthritis of the glenohumeral joint with joint space narrowing and osteophyte formation. The AC joint is maintained. There is a soft tissue calcification adjacent to the greater tuberosity of the humerus which is likely related to the rotator cuff. XR/XR shoulder LT min 2V IMPRESSION: Severe osteoarthritis of the glenohumeral joint. Probable rotator cuff calcification. Electronically signed by: Manas Celeste MD 12/07/2024 07:44 AM EDT
[2024-12-07 07:10] LABS: MANUAL DIFF FLAG NO
[2024-12-07 07:44] LABS: Hematocrit 39.6 % (37.0-47.0); Hemoglobin 13.2 g/dl (12.0-16.0); Imm Gran Abs Auto 0.01 X10*3/uL (0.00-0.03); Imm Gran Pct Auto 0.3 % (0.0-0.4); Lymphocytes Absolute Auto 1.4 X10*3/uL (1.2-4.9); Mean Corpuscular HGB Conc 33.3 g/dl (31.0-35.0); Mean Corpuscular Hemoglobin 29.9 pg (27.0-33.0); Mean Corpuscular Volume 89.8 fL (80.0-98.0); NRBC Abs Auto 0.000 X10*3/uL (0.0-0.012); NRBC Pct Auto 0.0 /100WBC (0.0-0.2); Platelet Count 212 X10*3/uL (160-400); Red Blood Count 4.41 X10*6/uL (4.20-5.50); White Blood Count 3.8 X10*3/uL (4.8-10.8)
[2024-12-07 08:22] LABS: Appearance Urine Clear; Glucose Urine UA Negative (Negative); PH 8.0 (5.0-9.0); Specific Gravity - Urine 1.015 (1.005-1.025); UMIC TRIGGER UACC YES
[2024-12-07 09:08] LABS: Alanine Aminotransferase 16 U/L (0-31); Albumin Level 4.2 g/dL (3.5-5.0); Alkaline Phosphatase 85 U/L (39-117); Anion Gap 8 (12-20); Aspartate Amino Transferase 21 U/L (5-31); Blood Urea Nitrogen 14 mg/dL (9-16); Calcium 9.2 mg/dL (8.4-10.2); Carbon Dioxide 29 mmol/L (22-29); Chloride 108 mmol/L (96-108); Cholesterol 210 mg/dL (<200); Estimated Glomerular Filt Rate > 60; HDL Cholesterol 66 mg/dL (>40); Potassium 4.3 mmol/L (3.3-5.1); Sodium 141 mmol/L (135-145); Total Protein 6.4 g/dL (6.5-8.0); Triglycerides 65 mg/dL (<150)
== END 2024-12-07 06:58 | disposition home or self-care (01) ==
LOC: HO.XRAY 06:57
PROVIDERS: PCP Internal Medicine; Visit Provider Internal Medicine
DX: M25.512 Pain in left shoulder (principal); E55.9 Vitamin D deficiency, unspecified; E78.00 Pure hypercholesterolemia, unspecified; D64.9 Anemia, unspecified; Z00.00 Encounter for general adult medical examination without abnormal findings
CPT/HCPCS: 36415; 73030; 80053; 80061; 81001; 81003; 82306; 84443; 85025

== ENCOUNTER → 2024-12-07 07:16 | Outpatient (BNV) | payer BC, SELFPAY | PROVIDERS: PCP Internal Medicine; Visit Provider Radiology Diagnostic Radiology | DX: M19.012 Primary osteoarthritis, left shoulder (principal) | CPT/HCPCS: 73030 ==

== ENCOUNTER 2024-12-11 09:45 | Outpatient (REF) | payer BC, SELFPAY ==
--- NOTE | ~2024-12-11 | XR_ITS ---
EXAMINATION: XR LUMBOSACRAL SPINE CLINICAL INFORMATION: M54.50 - Low back pain, unspecified COMPARISON: None available. TECHNIQUE: Three views of the lumbosacral spine. FINDINGS: There is a levoconvex scoliosis, apex at L4. There is a normal lordosis. There is a 3 mm degenerative appearing retrolisthesis of L2 upon L3. Alignment is otherwise anatomic. No compression deformity, fracture, or suspicious bone lesion. Normal facet alignment. There are degenerative facet changes spanning L3-S1. Moderate diffuse disc degeneration is evident. Soft tissues appear unremarkable. There is abundant stool seen throughout the colon and rectum. XR/XR lumbar spine 2-3V IMPRESSION: 1. No acute finding of the lumbar spine. 2. Mild scoliosis and moderate multilevel degenerative spondylosis. Electronically signed by: Dimitry Love MD 12/11/2024 10:32 AM EDT
== END 2024-12-11 09:46 | disposition home or self-care (01) ==
LOC: HO.XRAY 09:45
PROVIDERS: PCP Internal Medicine; Visit Provider Internal Medicine
DX: M54.50 Low back pain, unspecified (principal)
CPT/HCPCS: 72100

== ENCOUNTER → 2024-12-11 09:49 | Outpatient (BNV) | payer BC, SELFPAY | PROVIDERS: PCP Internal Medicine; Visit Provider Radiology Diagnostic Radiology | DX: M47.816 Spondylosis without myelopathy or radiculopathy, lumbar region (principal) | CPT/HCPCS: 72100 ==